=== PATIENT | female | born 1965 | race American Indian/Alaskan Native ===

== ENCOUNTER 2017-10-26 14:22 | Emergency (ER) | payer SELFPAY ==
[2017-10-26 14:43] VITALS: BP 149/99
--- NOTE | 2017-10-26 16:56 | Emergency Department Report ---
- General Chief Complaint: Upper Respiratory Infection Stated Complaint: COLD/HBP/CP Time Seen by Provider: 10/26/17 16:35 Source: patient Mode of arrival: Ambulatory Limitations: No Limitations - History of Present Illness Initial Comments: 51-year-old female presents to ED with report of upper respiratory infection 2 weeks. Patient reported cough, congestion. Patient reports no relief with OTC meds including NyQuil, DayQuil, TheraFlu. She also reports history of hypertension however has been off BP meds 4 years. As a refill on BP meds. Patient unsure of what medication she took in the past. MD Complaint: fever, cough, nasal congestion Severity: moderate Improves With: nothing Worsens With: nothing Associated Symptoms: fever, headache, nasal congestion, cough. denies: shortness of breath, vomiting, diarrhea - Related Data Previous Rx's Medication Instructions Recorded Last Taken Type Cyclobenzaprine [Flexeril] 10 mg PO TID PRN #20 tablet 02/01/15 Unknown Rx Ibuprofen [Motrin 800 MG tab] 800 mg PO Q8HR PRN #30 tablet 02/01/15 Unknown Rx Benzonatate [Tessalon Perles] 100 mg PO Q8HR PRN #20 capsule 10/26/17 Unknown Rx Fluticasone [Flonase] 1 spray NS QDAY #1 bottle 10/26/17 Unknown Rx Hydrocodone/Chlorphen P-Stirex 5 ml PO Q12HR PRN #100 ml 10/26/17 Unknown Rx [Tussionex Pennkinetic Susp] Naproxen [Naprosyn] 500 mg PO BID #20 tablet 10/26/17 Unknown Rx predniSONE [Prednisone] 50 mg PO DAILY #5 tablet 10/26/17 Unknown Rx Allergies Allergy/AdvReac Type Severity Reaction Status Date / Time No Known Allergies Allergy Verified 10/26/17 14:43 ED Review of Systems ROS: Stated complaint: COLD/HBP/CP Other details as noted in HPI Comment: All other systems reviewed and negative Constitutional: fever ENT: congestion Respiratory: cough. denies: shortness of breath, wheezing Cardiovascular: denies: chest pain ED Past Medical Hx - Past Medical History Previous Medical History?: Yes Hx Hypertension: Yes - Surgical History Past Surgical History?: Yes Additional Surgical History: neck, ankle (hardware) - Social History Smoking Status: Current Every Day Smoker Substance Use Type: Alcohol - Medications Home Medications: Home Medications Medication Instructions Recorded Confirmed Last Taken Type Cyclobenzaprine [Flexeril] 10 mg PO TID PRN #20 tablet 02/01/15 Unknown Rx Ibuprofen [Motrin 800 MG tab] 800 mg PO Q8HR PRN #30 tablet 02/01/15 Unknown Rx Benzonatate [Tessalon Perles] 100 mg PO Q8HR PRN #20 capsule 10/26/17 Unknown Rx Fluticasone [Flonase] 1 spray NS QDAY #1 bottle 10/26/17 Unknown Rx Hydrocodone/Chlorphen P-Stirex 5 ml PO Q12HR PRN #100 ml 10/26/17 Unknown Rx [Tussionex Pennkinetic Susp] Naproxen [Naprosyn] 500 mg PO BID #20 tablet 10/26/17 Unknown Rx predniSONE [Prednisone] 50 mg PO DAILY #5 tablet 10/26/17 Unknown Rx ED Physical Exam - General Limitations: No Limitations General appearance: alert, in no apparent distress - Head Head exam: Present: atraumatic, normocephalic - Eye Eye exam: Present: normal appearance - ENT ENT exam: Present: mucous membranes moist - Neck Neck exam: Present: normal inspection, full ROM - Respiratory Respiratory exam: Present: normal lung sounds bilaterally. Absent: respiratory distress, wheezes - Cardiovascular Cardiovascular Exam: Present: regular rate, normal rhythm - GI/Abdominal GI/Abdominal exam: Present: soft. Absent: tenderness - Extremities Exam Extremities exam: Present: normal inspection - Neurological Exam Neurological exam: Present: alert, oriented X3 - Psychiatric Psychiatric exam: Present: normal affect, normal mood - Skin Skin exam: Present: warm, dry, intact, normal color. Absent: rash ED Course Vital Signs 10/26/17 14:40 Temperature 98.7 F Pulse Rate 88 Respiratory 18 Rate Blood Pressure 149/99 O2 Sat by Pulse 99 Oximetry ED Medical Decision Making - Medical Decision Making 51-year-old female with upper respiratory infection 2 weeks. No relief with OTC meds. Vital signs are unremarkable. Patient requesting refill on hypertension meds. Off meds 4 years. Will give medication for BP and URI. Patient to follow-up in outpatient clinic. Return precautions given - Differential Diagnosis uri, essential HTN, bronchitis Critical care attestation.: If time is entered above; I have spent that time in minutes in the direct care of this critically ill patient, excluding procedure time. ED Disposition Clinical Impression: Bronchitis Disposition: DC- TO HOME OR SELFCARE Is pt being admited?: No Condition: Stable Instructions: Chronic Bronchitis (ED), Acute Bronchitis (ED) Prescriptions: Benzonatate [Tessalon Perles] 100 mg PO Q8HR PRN #20 capsule PRN Reason: Cough Fluticasone [Flonase] 1 spray NS QDAY #1 bottle Hydrocodone/Chlorphen P-Stirex [Tussionex Pennkinetic Susp] 5 ml PO Q12HR PRN # 100 ml PRN Reason: Cough Naproxen [Naprosyn] 500 mg PO BID #20 tablet predniSONE [Prednisone] 50 mg PO DAILY #5 tablet Referrals: PRIMARY CARE, [Primary Care Provider] - 3-5 Days
== END 2017-10-26 17:10 | disposition home or self-care (01) ==
LOC: ED 14:22
DX: J40 Bronchitis, not specified as acute or chronic (principal); I10 Essential (primary) hypertension; F17.200 Nicotine dependence, unspecified, uncomplicated
CPT/HCPCS: 99282

== ENCOUNTER 2018-05-14 22:53 | Emergency (ER) | payer SELFPAY ==
[2018-05-14] MEDS ORDERED: CATAPRES PO ONE (23:11)
[2018-05-14] MEDS ORDERED: APRESOLINE IV ONE (23:50)
[2018-05-14 23:55] LABS: Basophils % (Auto) 0.8 % (0.0-1.8); Eosinophils # (Auto) 0.1 K/mm3 (0.0-0.4); Eosinophils % (Auto) 2.6 % (0.0-4.3); Hemoglobin 14.3 gm/dl (10.1-14.3); Lymphocytes # (Auto) 1.6 K/mm3 (1.2-5.4); Lymphocytes % (Auto) 31.1 % (13.4-35.0); Mean Corpuscular HGB Conc 35 % (30-34); Mean Corpuscular Volume 90 fl (79-97); Monocytes # (Auto) 0.4 K/mm3 (0.0-0.8); Platelet Count 196 K/mm3 (140-440); Red Blood Count 4.55 M/mm3 (3.65-5.03); Red Cell Distribution Width 13.3 % (13.2-15.2)
[2018-05-15 00:06] LABS: BUN/Creatinine Ratio 17; Blood Urea Nitrogen 12 mg/dL (7-17); Calcium 8.6 mg/dL (8.4-10.2); Hemolysis Index 12; INR 0.92 (0.87-1.13)
[2018-05-15 00:07] LABS: Partial Thromboplastin Time 24.4 Sec. (24.2-36.6)
--- NOTE | 2018-05-15 00:15 | Emergency Department Report ---
HPI - General Chief Complaint: High BP Time Seen by Provider: 05/14/18 23:48 - HPI HPI: 52-year-old -[place] female presents to the emergency department from home with complaint of a 2 day history of a generalized headache, intermittent nosebleed and increased fatigue. The patient has been dealing with some elevated blood pressures. She does have a history of hypertension but has not been on any medication since she moved to [place] 5 years ago. She denies any chest pain, back pain, shortness of breath, fever, nausea and vomiting. She has not taken anything for her symptoms prior to presentation. She does not have a primary care physician. She is a tobacco smoker but denies any illicit drug use or abuse. ED Past Medical Hx - Past Medical History Previous Medical History?: Yes Hx Hypertension: Yes - Surgical History Past Surgical History?: Yes Additional Surgical History: neck, ankle (hardware) - Social History Smoking Status: Current Every Day Smoker Substance Use Type: None - Medications Home Medications: Home Medications Medication Instructions Recorded Confirmed Last Taken Type Cyclobenzaprine [Flexeril] 10 mg PO TID PRN #20 tablet 02/01/15 Unknown Rx Ibuprofen [Motrin 800 MG tab] 800 mg PO Q8HR PRN #30 tablet 02/01/15 Unknown Rx Benzonatate [Tessalon Perles] 100 mg PO Q8HR PRN #20 capsule 10/26/17 Unknown Rx Fluticasone [Flonase] 1 spray NS QDAY #1 bottle 10/26/17 Unknown Rx Hydrocodone/Chlorphen P-Stirex 5 ml PO Q12HR PRN #100 ml 10/26/17 Unknown Rx [Tussionex Pennkinetic Susp] Naproxen [Naprosyn] 500 mg PO BID #20 tablet 10/26/17 Unknown Rx predniSONE [Prednisone] 50 mg PO DAILY #5 tablet 10/26/17 Unknown Rx amLODIPine [Norvasc] 10 mg PO DAILY #30 tab 05/15/18 Unknown Rx ED Review of Systems ROS: Stated complaint: NOSE BLEED, DROWSY, ELEVATED BP Other details as noted in HPI Comment: All other systems reviewed and negative Constitutional: other (fatigue). denies: chills, fever Eyes: denies: eye pain, vision change ENT: epistaxis. denies: ear pain Respiratory: denies: cough, shortness of breath Cardiovascular: denies: chest pain, palpitations Gastrointestinal: denies: abdominal pain, vomiting Genitourinary: denies: dysuria, discharge Musculoskeletal: myalgia. denies: back pain Skin: denies: rash, lesions Neurological: headache. denies: weakness, numbness Physical Exam - Physical Exam Vital Signs: Vital Signs 05/14/18 05/14/18 05/14/18 22:59 23:17 23:43 Temperature 98.2 F Pulse Rate 88 89 99 H Respiratory 18 23 Rate Blood Pressure 230/113 230/113 O2 Sat by Pulse 96 Oximetry 05/14/18 05/15/18 23:46 00:09 Temperature Pulse Rate 82 82 Respiratory 19 Rate Blood Pressure 191/125 191/125 O2 Sat by Pulse 100 Oximetry Physical Exam: GENERAL: The patient is well-developed well-nourished. HEENT: Normocephalic. Atraumatic. Patient has moist mucous membranes. Oropharynx is clear. Clear bilateral nasal passages without any signs of epistaxis. EYES: Extraocular motions are intact. Pupils are equal and reactive to light bilaterally. NECK: Supple. Trachea is midline. CHEST/LUNGS: Clear to auscultation. There is no respiratory distress noted. HEART/CARDIOVASCULAR: Regular. There is no tachycardia. There is no obvious murmur. ABDOMEN: Abdomen is soft, nontender. Patient has normal bowel sounds. There is no abdominal distention. SKIN: Skin is warm and dry. NEURO: The patient is awake, alert, and oriented. The patient is cooperative. The patient has no focal neurologic deficits. The patient has normal speech. Cranial nerves II through XII grossly intact. No pronator drift. MUSCULOSKELETAL: There is no tenderness or deformity. There is no limitation range of motion. There is no evidence of acute injury. ED Course Vital Signs 05/14/18 05/14/18 05/14/18 22:59 23:17 23:43 Temperature 98.2 F Pulse Rate 88 89 99 H Respiratory 18 23 Rate Blood Pressure 230/113 230/113 O2 Sat by Pulse 96 Oximetry 05/14/18 05/15/18 23:46 00:09 Temperature Pulse Rate 82 82 Respiratory 19 Rate Blood Pressure 191/125 191/125 O2 Sat by Pulse 100 Oximetry ED Medical Decision Making - Lab Data Result diagrams: 05/14/18 23:32 05/14/18 23:32 - EKG Data -: EKG Interpreted by Nh EKG shows normal: sinus rhythm, axis (left axis deviation), intervals, QRS complexes (LVH), ST-T waves Rate: normal - EKG Data When compared to previous EKG there are: previous EKG unavailable Interpretation: LVH - Radiology Data Radiology results: report reviewed PROCEDURE: CT HEAD/BRAIN WO CON TECHNIQUE: Routine axial imaging was obtained of the brain without IV contrast. HISTORY: Headache with hypertension, blurry vision COMPARISONS: None FINDINGS: There is a remote lacunar infarct in the left frontal lobe. There is no evidence of acute stroke or hemorrhage. The ventricular system is appropriate in size and is such. There is slightly diminished attenuation of the periventricular white matter noted. The basal cisterns appear normal. The visualized sinuses are clear. The mastoid air cells are well pneumatized. The calvarium appears intact. IMPRESSION: No acute stroke or hemorrhage. Remote lacunar infarct in the left frontal lobe. Slightly diminished attenuation of the paravertebral white matter compatible with chronic ischemic white matter disease changes.. This document is electronically signed by Casey Briggs MD., May 15 2018 01:32:34 AM ET Transcribed By: MESERET Dictated By: CASEY BRIGGS MD Electronically Authenticated By: CASEY BRIGGS MD Signed Date/Time: 05/15/18 0134 - Medical Decision Making This patient presents with extremely elevated blood pressure and a 2 day history of a generalized headache and some blurred vision and epistaxis. Currently the patient has no signs of any bleeding and it seems to have resolved much earlier in the day. On examination she does not have any focal, motor or sensory deficits and Cranial nerves intact. CT scan of the head was done that does not show any bleed, shift, mass, ischemia, or any other acute process. Patient's labs were unremarkable including a CBC, BMP, TSH, troponin. Prior to discharge, the patient was seen ambulatory in the emergency department and both appears and feels stable. She will be started on amlodipine. We discussed dietary and lifestyle changes to make including smoking cessation, decrease salt and caffeine intake. She will be given multiple primary care and clinic referrals. She will keep a blood pressure log. She will return to the ER with any worsening of her symptoms or any acute distress. It should also be noted that the patient has poor visual acuity at this time that she wears glasses and does not have them with her currently. Critical Care Time: No Critical care attestation.: If time is entered above; I have spent that time in minutes in the direct care of this critically ill patient, excluding procedure time. ED Disposition Clinical Impression: Hypertensive urgency, Tobacco use, Noncompliance with medication regimen Headache Qualifiers: Headache type: unspecified Headache chronicity pattern: unspecified pattern Intractability: not intractable Qualified Code(s): R51 - Headache Disposition: DC-01 TO HOME OR SELFCARE Is pt being admited?: No Condition: Stable Instructions: How to Stop Smoking (ED), Acute Headache (ED), Hypertension (ED) Additional Instructions: I am giving you multiple referrals for primary care physicians and clinics in the area for follow-up. I am starting you on a blood pressure medication the name Norvasc/amlodipine. This medication is taken once per day, usually in the morning. Please try and quit smoking. Try and stay away from foods that are high in salt and caffeinated products to help with her blood pressure. Keep a blood pressure log. Return to the emergency Department with any worsening of your symptoms or any acute distress. Prescriptions: amLODIPine [Norvasc] 10 mg PO DAILY #30 tab Referrals: [facility] [Outside] - 2-3 Days [facility] [Outside] - 2-3 Days [facility] [Outside] - 2-3 Days [facility] [Outside] - 2-3 Days [facility] [Outside] - 2-3 Days Time of Disposition: 01:54 - Assessment Assessment Interval: Baseline - Level of Consciousness 1a. Level of Consciousness: alert/keenly responsive - LOC Questions 1b. LOC Questions: answers both correctly - LOC Command 1c. LOC Commands: performs tasks correctly - Best Gaze 2. Best Gaze: normal - Visual 3. Visual: no visual loss - Facial Palsy 4. Facial Palsy: normal symmetrical movement - Motor Arm 5a. Motor Arm Left: no drift 5b. Motor Arm Right: no drift - Motor Leg 6a. Motor Leg Left: no drift 6b. Motor Leg Right: no drift - Limb Ataxia 7. Limb Ataxia: absent - Sensory 8. Sensory: normal - Best Language 9. Best Language: no aphasia - Dysarthria 10. Dysarthria: normal - Extinction and Inattention 11. Extinction/Inattention: no abnormality - Scoring Total Score: 0 Stroke Severity: No Stroke Symptoms
--- NOTE | 2018-05-15 01:34 | Cat Scan Report ---
PROCEDURE: CT HEAD/BRAIN WO CON TECHNIQUE: Routine axial imaging was obtained of the brain without IV contrast. HISTORY: Headache with hypertension, blurry vision COMPARISONS: None FINDINGS: There is a remote lacunar infarct in the left frontal lobe. There is no evidence of acute stroke or h emorrhage. The ventricular system is appropriate in size and is such. There is slightly diminished at tenuation of the periventricular white matter noted. The basal cisterns appear normal. The visualized sinuses are clear. The mastoid air cells are well pneumatized. The calvarium appears intact. IMPRESSION: No acute stroke or hemorrhage. Remote lacunar infarct in the left frontal lobe. Slightly diminished attenuation of the paravertebral white matter compatible with chronic ischemic wh ite matter disease changes.. This document is electronically signed by Casey Briggs MD., May 15 2018 01:32:34 AM ET
[2018-05-15 02:40] VITALS: BP 150/66
== END 2018-05-15 02:47 | disposition home or self-care (01) ==
LOC: ED 22:53
DX: I16.0 Hypertensive urgency (principal); Z72.0 Tobacco use; F17.200 Nicotine dependence, unspecified, uncomplicated; Z79.899 Other long term (current) drug therapy
CPT/HCPCS: 36415; 70450; 80048; 84443; 84484; 85025; 85610; 85730; 93005; 93010; 96374; 99284; J0360

== ENCOUNTER 2018-09-27 18:43 | Inpatient (IN) | payer OTHER ==
--- NOTE | 2018-09-27 18:52 | Event Note ---
ED Screening Note ED Screening Note: right arm numbness and weakness since 2 PM today denies hx of CVA This initial assessment/diagnostic orders/clinical plan/treatment(s) is/are subject to change based on patients health status, clinical progression and re- assessment by fellow clinical providers in the ED. Further treatment and workup at subsequent clinical providers discretion. Patient/guardian urged not to elope from the ED as their condition may be serious if not clinically assessed and managed. Initial orders include: code stroke
--- NOTE | 2018-09-27 19:12 | Consultation ---
History of Present Illness History of present illness: [facility] Impression: Patient with right-sided weakness/sensory loss. Probable left hemispheric lacunar infarct of the deep brain structures. Not a tpa candidate due to: out of window Not an KELLEY candidate due to: presentation not suggestive of LVO Differential Diagnosis: 1. Cardioembolic stroke 2. Small vessel disease/lacune 3. Thromboembolic, [id number] mechanism 4. Hypercoagulable state-related infarct 5. Transient ischemic attack 6. Thrombotic mechanism, large artery disease Comments: Door time: 1842 [facility] contacted: 1855 [facility] at bedside: 1858 NIHSS assessment time: 1904 (pt in CT on log in) Recommendations: ASA Permissive HTN Statin MRI brain wo Carotid Doppler TTE inpatient neurology consultation Inpatient stroke evaluation as per Neurology/ Internal Medicine Discussed with ED MD CC: stroke alert History of Present Illness Patient is a52 year old woman with a history of HTN presenting with right-sided weakness/numbness. Last normal at 0800 when she woke from sleep to use the bathroom. She went back to sleep and woke around noon with right-sided weakness and numbness. No vision loss, speech/language changes, incoordination, neglect, MCCOY, CP. Diagnostic: CT head wo - nothing acute Exam: NIHSS score: 3 Medical Decision Making: - Extensive number of diagnosis or management options are considered above. - Extensive amount of complex data reviewed. - High risk of complication and/or morbidity or mortality are associated with differential diagnostic considerations above. - There may be Uncertain outcome and increased probability of prolonged functional impairment or high probability of severe prolonged functional impairment associated with some of these differential diagnosis. Medical Data Reviewed: 1.Data reviewed include clinical labs, radiology, Medical Tests; 2.Tests results discussed w/performing or interpreting physician; 3.Obtaining/reviewing old medical records; 4.Obtaining case history from another source; 5.Independent review of image, tracing or specimen. Patient was informed the Neurology Consult would happen via Tele[facility] consult by way of interactive audio and video telecommunications and consented to receiving care in this manner. Medications and Allergies Allergies Allergy/AdvReac Type Severity Reaction Status Date / Time No Known Allergies Allergy Verified 10/26/17 14:43 Home Medications Medication Instructions Recorded Confirmed Last Taken Type Cyclobenzaprine [Flexeril] 10 mg PO TID PRN #20 tablet 02/01/15 Unknown Rx Ibuprofen [Motrin 800 MG tab] 800 mg PO Q8HR PRN #30 tablet 02/01/15 Unknown Rx Benzonatate [Tessalon Perles] 100 mg PO Q8HR PRN #20 capsule 10/26/17 Unknown Rx Fluticasone [Flonase] 1 spray NS QDAY #1 bottle 10/26/17 Unknown Rx Hydrocodone/Chlorphen P-Stirex 5 ml PO Q12HR PRN #100 ml 10/26/17 Unknown Rx [Tussionex Pennkinetic Susp] Naproxen [Naprosyn] 500 mg PO BID #20 tablet 10/26/17 Unknown Rx predniSONE [Prednisone] 50 mg PO DAILY #5 tablet 10/26/17 Unknown Rx amLODIPine [Norvasc] 10 mg PO DAILY #30 tab 05/15/18 Unknown Rx - Level of Consciousness 1a. Level of Consciousness: alert/keenly responsive - LOC Questions 1b. LOC Questions: answers both correctly - LOC Command 1c. LOC Commands: performs tasks correctly - Best Gaze 2. Best Gaze: normal - Visual 3. Visual: no visual loss - Facial Palsy 4. Facial Palsy: normal symmetrical movement - Motor Arm 5a. Motor Arm Left: no drift 5b. Motor Arm Right: drift - Motor Leg 6a. Motor Leg Left: no drift 6b. Motor Leg Right: drift - Limb Ataxia 7. Limb Ataxia: absent - Sensory 8. Sensory: mild/moderate sensory loss - Best Language 9. Best Language: no aphasia - Dysarthria 10. Dysarthria: normal - Extinction and Inattention 11. Extinction/Inattention: no abnormality - Scoring Total Score: 3 Stroke Severity: Minor Stroke
[2018-09-27 19:20] LABS: Basophils # (Auto) 0.1 K/mm3 (0.0-0.1); Eosinophils # (Auto) 0.3 K/mm3 (0.0-0.4); Eosinophils % (Auto) 4.5 % (0.0-4.3); Hematocrit 43.9 % (30.3-42.9); Hemoglobin 15.1 gm/dl (10.1-14.3); Lymphocytes # (Auto) 1.8 K/mm3 (1.2-5.4); Lymphocytes % (Auto) 29.5 % (13.4-35.0); Mean Corpuscular HGB Conc 34 % (30-34); Mean Corpuscular Volume 88 fl (79-97); Monocytes # (Auto) 0.6 K/mm3 (0.0-0.8); Monocytes % (Auto) 10.2 % (0.0-7.3); Platelet Count 204 K/mm3 (140-440); Red Blood Count 4.97 M/mm3 (3.65-5.03); Red Cell Distribution Width 12.7 % (13.2-15.2)
--- NOTE | 2018-09-27 19:28 | Cat Scan Report ---
CT head without contrast Clinical history: Right-sided weakness, slurred speech, stroke symptoms FINDINGS: There is no old infarct involving the anterior left gangliocapsular region which correlates with the previous CT of 05/15/2018. However, there is a 9 mm focus of more subtle decrease attenuatio n within the left putamen which is more conspicuous than on the prior study and correlation would be needed regarding small evolving infarct within this region. There is a small old lacunar infarct with in the head of the right caudate. 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 There is no clear CT evidence of acute intracranial hemorrhage or significant mass effect. The ventri cular system appears unchanged in size and configuration. The visualized paranasal sinuses are clear. All CT scans at this location are performed using the CT dose reduction for ALARA by means of automa bryce exposure control. IMPRESSION: There is old infarct involving the anterior left gangliocapsular region. However, there is been inter hugo development of a 9 mm focus of decreased attenuation more posteriorly within the left putamen and correlation would be needed regarding developing acute infarct. There is no CT evidence of acute intracranial hemorrhage. The findings were called emergently to the ER at 6:21 PM per the code stroke protocol. Signer Name: Colby Sanders MD Signed: 09/27/2018 7:23 PM Workstation Name: [id number]
[2018-09-27 19:38] LABS: Creatine Kinase MB 1.9 ng/mL (0.0-4.0)
[2018-09-27 19:45] LABS: INR 0.9 (0.87-1.13)
[2018-09-27 19:46] LABS: Partial Thromboplastin Time 23.4 Sec. (24.2-36.6); Thrombin Time 16.7 Sec. (15.1-19.6)
[2018-09-27] MEDS ORDERED: CATAPRES PO ONE ×2 (20:32→20:47)
[2018-09-27 21:03] LABS: BUN/Creatinine Ratio 18; Blood Urea Nitrogen 9 mg/dL (7-17); Hemolysis Index 13
--- NOTE | 2018-09-27 21:03 | XRay Report ---
CHEST 1 VIEW INDICATION: HTN. COMPARISON: None. FINDINGS: Support devices: None. Heart: Within normal limits. Lungs/Pleura: No acute air space or interstitial disease. Additional findings: None. IMPRESSION: No acute abnormality. Signer Name: Edu Jones MD Signed: 09/27/2018 8:59 PM Workstation Name: [id number]
[2018-09-27] MEDS ORDERED: APRESOLINE IV ONE (21:23)
[2018-09-27] MEDS ORDERED: ZOFRAN IV PRN ×2 (23:18→23:42)
[2018-09-27] MEDS ORDERED: TYLENOL PO PRN ×2 (23:18→23:34)
[2018-09-27] MEDS ORDERED: SODIUM CHLORIDE FLUSH SYRINGE 10 ML IV PRN (23:18)
--- NOTE | 2018-09-27 23:22 | Emergency Department Report ---
ED Neuro Deficit HPI - General Chief Complaint: Neuro Symptoms/Deficit Stated Complaint: R SIDE NUMBNESS Time Seen by Provider: 09/27/18 18:50 Source: patient Mode of arrival: Ambulatory Limitations: No Limitations - History of Present Illness Initial Comments: PAtient reports she awoke at approximately 0800. Reports she did not feel well and went back to sleep until noon. Reports that at noon she attempted to walk to the bathroom and felt funny. Reports she felt her right side was weak. Reports that at approximately 1400 the right sided weakness became more pronounce. Denies trauma. Reports non-compliant with anti-hypertensives for approximately 1 year. Reports smokes tobacco. -: Gradual, hour(s) Location: speech, right face, right arm, right leg Presenting Symptoms: Present: Weak/Paralyzed One Side Place: home Severity: moderate Quality: weak Improves With: none Worsens With: none On Anticoagulants: No Context: gradual onset Associated Symptoms: weakness. denies: confusion, chest pain, cough, diaphoresis, fever/chills, headaches, loss of appetite, malise, nausea/vomiting, vertigo, seizures, shortness of breath, syncope - Related Data Home Medications: Previous Rx's Medication Instructions Recorded Last Taken Type Cyclobenzaprine [Flexeril] 10 mg PO TID PRN #20 tablet 02/01/15 Unknown Rx Ibuprofen [Motrin 800 MG tab] 800 mg PO Q8HR PRN #30 tablet 02/01/15 Unknown Rx Benzonatate [Tessalon Perles] 100 mg PO Q8HR PRN #20 capsule 10/26/17 Unknown Rx Fluticasone [Flonase] 1 spray NS QDAY #1 bottle 10/26/17 Unknown Rx Hydrocodone/Chlorphen P-Stirex 5 ml PO Q12HR PRN #100 ml 10/26/17 Unknown Rx [Tussionex Pennkinetic Susp] Naproxen [Naprosyn] 500 mg PO BID #20 tablet 10/26/17 Unknown Rx predniSONE [Prednisone] 50 mg PO DAILY #5 tablet 10/26/17 Unknown Rx amLODIPine [Norvasc] 10 mg PO DAILY #30 tab 05/15/18 Unknown Rx Allergies/Adverse Reactions: Allergies Allergy/AdvReac Type Severity Reaction Status Date / Time No Known Allergies Allergy Verified 10/26/17 14:43 ED Review of Systems ROS: Stated complaint: R SIDE NUMBNESS Other details as noted in HPI Other: GENERAL: No weight change, fatigue, fever, chills, or night sweats SKIN: No changes in skin or hair, no itching, no rashes, no jaundice HEAD: No trauma, headache, or visual changes EYES: No blurriness, tearing, itching, acute visual loss, conjunctival discoloration, or scleral icterus EARS: No hearing loss, tinnitus, vertigo, or earache NOSE: No rhinorrhea, stuffiness, sneezing, itching, or epistaxis MOUTH: No bleeding gums, hoarseness, sore throat, or swelling CARDIAC: No new murmur, chest pain, palpitations, dyspnea on exertion, orthopnea, PND, or edema RESPIRATORY: No shortness of breath, wheeze, cough, sputum production, hemoptysis, pneumonia, asthma, bronchitis, or emphysema GI: No change in appetite, nausea, vomiting, dysphagia, change in bowel frequency, diarrhea, constipation, bleeding, hematemesis, melena, hematochezia, or abdominal pain URINARY: No frequency, urgency, polyuria, dysuria, hematuria, or incontinence MUSCULOSKELETAL: No muscle weakness, joint stiffness, decrease in range of motion, redness, swelling NEUROLOGIC: Weakness right side. No loss of sensation, numbness, tingling, tremors, paralysis, seizures HEMATOLOGIC: No anemia, easy bruising, bleeding, petechiae, or purpura ENDOCRINE: No hot or cold intolerance, sweating, polyuria, polydipsia or, polyphagia no thyroid problems ED Past Medical Hx - Past Medical History Hx Hypertension: Yes - Surgical History Additional Surgical History: neck, ankle (hardware) - Social History Smoking Status: Current Every Day Smoker Substance Use Type: Alcohol - Medications Home Medications: Home Medications Medication Instructions Recorded Confirmed Last Taken Type Cyclobenzaprine [Flexeril] 10 mg PO TID PRN #20 tablet 02/01/15 Unknown Rx Ibuprofen [Motrin 800 MG tab] 800 mg PO Q8HR PRN #30 tablet 02/01/15 Unknown Rx Benzonatate [Tessalon Perles] 100 mg PO Q8HR PRN #20 capsule 10/26/17 Unknown Rx Fluticasone [Flonase] 1 spray NS QDAY #1 bottle 10/26/17 Unknown Rx Hydrocodone/Chlorphen P-Stirex 5 ml PO Q12HR PRN #100 ml 10/26/17 Unknown Rx [Tussionex Pennkinetic Susp] Naproxen [Naprosyn] 500 mg PO BID #20 tablet 10/26/17 Unknown Rx predniSONE [Prednisone] 50 mg PO DAILY #5 tablet 10/26/17 Unknown Rx amLODIPine [Norvasc] 10 mg PO DAILY #30 tab 05/15/18 Unknown Rx ED Neuro Physical Exam - General Limitations: No Limitations Suspected Stroke: Yes - NIHSS Assessment Interval: Baseline 1a. Level of Consciousness: alert/keenly responsive 1b. LOC Questions: answers both correctly 1c. LOC Commands: performs tasks correctly 2. Best Gaze: normal 3. Visual: no visual loss 4. Facial Palsy: partial paralysis 5b. Motor Arm Right: some gravity effort 5a. Motor Arm Left: no drift 6a. Motor Leg Left: no drift 6b. Motor Leg Right: drift 7. Limb Ataxia: absent 8. Sensory: mild/moderate sensory loss 9. Best Language: mild/moderate aphasia 10. Dysarthria: mild/moderate dysarthria 11. Extinction/Inattention: no abnormality Total Score: 8 Stroke Severity: Moderate Stroke - Other Other exam information: GENERAL: Patient in acute distress HEAD: Normocephalic, atraumatic EYES: PERRLA, EOM intact, no scleral icterus, no conjunctival hemorrhage, visual taylor and acuity wnl NOSE: No tenderness, discharge, sinus tenderness MOUTH: No erythema, bleeding, exudate HEART: Regular rate and rhythm, no murmur, S1-S2 are auscultated, pulses are symmetric LUNGS: Bilateral breath sounds, No tachypnea, No retractions, No wheezing, rales, rhonchi ABDOMEN: Normal bowel sounds, no tenderness, no rebound, no guarding, no masses, no CVA tenderness MUSCULOSKELETAL: Normal joint range of motion, no redness, no swelling, no tenderness NEUROLOGIC: GCS 15, Alert and Oriented x3, Cranial nerves intact, no cerebellar deficit, right sided weakness, right sided numbness SKIN: Skin is warm and dry, no wounds, no rashes ED Course Vital Signs 09/27/18 09/27/18 09/27/18 19:06 19:40 19:48 Temperature 98.4 F Pulse Rate 80 71 Respiratory 18 15 15 Rate Blood Pressure 221/131 Blood Pressure 245/130 [Left] O2 Sat by Pulse 100 98 98 Oximetry 08/13/19 08/13/19 08/13/19 20:38 21:10 21:44 Temperature Pulse Rate 70 72 65 Respiratory Rate Blood Pressure 228/130 222/123 207/116 Blood Pressure [Left] O2 Sat by Pulse Oximetry 09/27/18 09/27/18 22:30 23:30 Temperature 97.6 F Pulse Rate 70 70 Respiratory 15 12 Rate Blood Pressure Blood Pressure 168/78 163/82 [Left] O2 Sat by Pulse 100 100 Oximetry - Lab Data Result diagrams: 09/27/18 19:13 09/27/18 20:37 Lab Results 09/27/18 09/27/18 09/27/18 Range/Units 19:13 19:13 19:13 WBC 6.1 (4.5-11.0) K/mm3 RBC 4.97 (3.65-5.03) M/mm3 Hgb 15.1 H (10.1-14.3) gm/dl Hct 43.9 H (30.3-42.9) % MCV 88 (79-97) fl MCH 30 (28-32) pg MCHC 34 (30-34) % RDW 12.7 L (13.2-15.2) % Plt Count 204 (140-440) K/mm3 Lymph % (Auto) 29.5 (13.4-35.0) % [place] % (Auto) 10.2 H (0.0-7.3) % Eos % (Auto) 4.5 H (0.0-4.3) % Baso % (Auto) 1.0 (0.0-1.8) % Lymph # 1.8 (1.2-5.4) K/mm3 [place] # 0.6 (0.0-0.8) K/mm3 Eos # 0.3 (0.0-0.4) K/mm3 Baso # 0.1 (0.0-0.1) K/mm3 Seg Neutrophils % 54.8 (40.0-70.0) % Seg Neutrophils # 3.3 (1.8-7.7) K/mm3 PT 11.9 L (12.2-14.9) Sec. INR 0.90 (0.87-1.13) APTT 23.4 L (24.2-36.6) Sec. Thrombin Time 16.7 (15.1-19.6) Sec. Sodium (137-145) mmol/L Potassium (3.6-5.0) mmol/L Chloride (98-107) mmol/L Carbon Dioxide (22-30) mmol/L Anion Gap mmol/L BUN (7-17) mg/dL Creatinine (0.7-1.2) mg/dL Estimated GFR ml/min BUN/Creatinine Ratio % Glucose (65-100) mg/dL POC Glucose (70-105) Calcium (8.4-10.2) mg/dL Total Creatine Kinase 118 (30-135) units/L CK-MB (CK-2) 1.9 (0.0-4.0) ng/mL CK-MB (CK-2) Rel Index 1.6 (0-4) Troponin T < 0.010 (0.00-0.029) ng/mL 09/27/18 09/27/18 Range/Units 19:16 20:37 WBC (4.5-11.0) K/mm3 RBC (3.65-5.03) M/mm3 Hgb (10.1-14.3) gm/dl Hct (30.3-42.9) % MCV (79-97) fl MCH (28-32) pg MCHC (30-34) % RDW (13.2-15.2) % Plt Count (140-440) K/mm3 Lymph % (Auto) (13.4-35.0) % [place] % (Auto) (0.0-7.3) % Eos % (Auto) (0.0-4.3) % Baso % (Auto) (0.0-1.8) % Lymph # (1.2-5.4) K/mm3 [place] # (0.0-0.8) K/mm3 Eos # (0.0-0.4) K/mm3 Baso # (0.0-0.1) K/mm3 Seg Neutrophils % (40.0-70.0) % Seg Neutrophils # (1.8-7.7) K/mm3 PT (12.2-14.9) Sec. INR (0.87-1.13) APTT (24.2-36.6) Sec. Thrombin Time (15.1-19.6) Sec. Sodium 140 (137-145) mmol/L Potassium 3.6 (3.6-5.0) mmol/L Chloride 103.6 (98-107) mmol/L Carbon Dioxide 23 (22-30) mmol/L Anion Gap 17 mmol/L BUN 9 (7-17) mg/dL Creatinine 0.5 L (0.7-1.2) mg/dL Estimated GFR > 60 ml/min BUN/Creatinine Ratio 18 % Glucose 97 (65-100) mg/dL POC Glucose 112 H (70-105) Calcium 9.0 (8.4-10.2) mg/dL Total Creatine Kinase (30-135) units/L CK-MB (CK-2) (0.0-4.0) ng/mL CK-MB (CK-2) Rel Index (0-4) Troponin T (0.00-0.029) ng/mL When compared to previous EKG there are: no significant change - Radiology Data Radiology results: report reviewed - Medical Decision Making Patient comfortable. Updated with results. Plan admit for further evaluation. Hospitalist updated and accepts admission. Critical Care Time: Yes Critical care time in (mins) excluding proc time.: 35 Critical care attestation.: If time is entered above; I have spent that time in minutes in the direct care of this critically ill patient, excluding procedure time. 35 ED Disposition Clinical Impression: Hypertensive emergency CVA (cerebral vascular accident) Qualifiers: CVA mechanism: unspecified Qualified Code(s): I63.9 - Cerebral infarction, unspecified Disposition: DC-09 OP ADMIT IP TO THIS HOSP Is pt being admited?: Yes Condition: Stable
[2018-09-27] MEDS ORDERED: MORPHINE IV PRN (23:34)
[2018-09-27] MEDS ORDERED: SODIUM CHLORIDE FLUSH SYRINGE 10 ML INJ PRN (23:34)
[2018-09-27] MEDS ORDERED: PHENERGAN PR PRN (23:34)
--- NOTE | 2018-09-28 01:13 | History and Physical Report ---
History of Present Illness Date of examination: 09/27/18 Date of admission: 09/27/18 23:18 Chief complaint: Right Sided weakness/numbness History of present illness: 52 year old female who is ongoing smoker with a history of EToH abuse HTN non compliant with antihypertensive meds, who [facility] with complaints of right-sided weakness/numbness Pt's last known normal is around 0800 this morning when she got up to use the restroom before returning to sleep. She woke up at noon, and upon waking up she noticed right sided weakness and numbness. She denies alterations in speech, visions, and gait. Past History Past Medical History: hypertension Past Surgical History: Other (neck, ankle (hardware)) Social history: smoking (current everyday smoker), alcohol abuse Family history: no significant family history Medications and Allergies Allergies Allergy/AdvReac Type Severity Reaction Status Date / Time No Known Allergies Allergy Verified 10/26/17 14:43 Home Medications Medication Instructions Recorded Confirmed Last Taken Type Cyclobenzaprine [Flexeril] 10 mg PO TID PRN #20 tablet 02/01/15 Unknown Rx Ibuprofen [Motrin 800 MG tab] 800 mg PO Q8HR PRN #30 tablet 02/01/15 Unknown Rx Benzonatate [Tessalon Perles] 100 mg PO Q8HR PRN #20 capsule 10/26/17 Unknown Rx Fluticasone [Flonase] 1 spray NS QDAY #1 bottle 10/26/17 Unknown Rx Hydrocodone/Chlorphen P-Stirex 5 ml PO Q12HR PRN #100 ml 10/26/17 Unknown Rx [Tussionex Pennkinetic Susp] Naproxen [Naprosyn] 500 mg PO BID #20 tablet 10/26/17 Unknown Rx predniSONE [Prednisone] 50 mg PO DAILY #5 tablet 10/26/17 Unknown Rx amLODIPine [Norvasc] 10 mg PO DAILY #30 tab 05/15/18 Unknown Rx Active Meds: Active Medications Acetaminophen (Tylenol) 650 mg PO Q4H PRN PRN Reason: Pain MILD(1-3)/Fever >100.5/MCCOY Aspirin (Aspirin) 325 mg PO QDAY RAINE Atorvastatin Calcium (Lipitor) 40 mg PO QHS RAINE Docusate Sodium (Colace) 100 mg PO BID RAINE Enoxaparin Sodium (Lovenox) 40 mg SUB-Q QDAY RAINE Morphine Sulfate (Morphine) 2 mg IV Q4H PRN PRN Reason: Pain, Moderate (4-6) Nicotine (Habitrol) 14 mg TD QDAY RAINE Ondansetron HCl (Zofran) 4 mg IV Q6H PRN PRN Reason: Nausea And Vomiting Promethazine HCl (Phenergan) 25 mg [place] Q6H PRN PRN Reason: Nausea And Vomiting Sodium Chloride (Sodium Chloride Flush Syringe 10 Ml) 10 ml IV BID RAINE Sodium Chloride (Sodium Chloride Flush Syringe 10 Ml) 10 ml IV PRN PRN PRN Reason: LINE FLUSH Review of Systems All systems: negative (reviewed and no additional remarkable complaints except as noted below) Musculoskeletal: muscle weakness, other (right sided weakness and numbness) Exam - Physical Exam Narrative exam: Physical exam General appearance: Present: No acute distress, and oriented 3, obese, - [place] female, face is symmetrical - EENT Eyes: Present: PERRL, EOM intact ENT: hearing intact, normal dentition - Neck Neck: Present: supple, normal ROM - Respiratory Respiratory effort: Non-labored Respiratory: CTA bilaterally - Cardiovascular Heart rate: 65 (bpm) Rhythm: regular Heart Sounds: Present: S1 & S2. Absent: rub, click - Extremities Extremities: no ischemia, pulses intact, abnormal - Peripheral Assessment Peripheral Pulses: within normal limits - Abdominal General gastrointestinal: obese, soft, non-tender, normal bowel sounds - Integumentary Integumentary: Present: warm, dry - Musculoskeletal Musculoskeletal: 2/5 muscle strength to right upper and lower extremity, unable to move right upper and lower against gravity, 5/5 strength to left upper and lower extremity Neurological -Neurological: CN II-XII gorssly intact - Psychiatric Psychiatric: cooperative - Constitutional Vitals: Temp Pulse Resp BP Pulse Ox 97.6 F 70 12 163/82 100 09/27/18 22:30 09/27/18 23:30 09/27/18 23:30 09/27/18 23:30 09/27/18 23:30 Results - Labs CBC & Chem 7: 09/27/18 19:13 09/27/18 20:37 Labs: Laboratory Last Values WBC 6.1 K/mm3 (4.5-11.0) 09/27/18 19:13 RBC 4.97 M/mm3 (3.65-5.03) 09/27/18 19:13 Hgb 15.1 gm/dl (10.1-14.3) H 09/27/18 19:13 Hct 43.9 % (30.3-42.9) H 09/27/18 19:13 MCV 88 fl (79-97) 09/27/18 19:13 MCH 30 pg (28-32) 09/27/18 19:13 MCHC 34 % (30-34) 09/27/18 19:13 RDW 12.7 % (13.2-15.2) L 09/27/18 19:13 Plt Count 204 K/mm3 (140-440) 09/27/18 19:13 Lymph % (Auto) 29.5 % (13.4-35.0) 09/27/18 19:13 [place] % (Auto) 10.2 % (0.0-7.3) H 09/27/18 19:13 Eos % (Auto) 4.5 % (0.0-4.3) H 09/27/18 19:13 Baso % (Auto) 1.0 % (0.0-1.8) 09/27/18 19:13 Lymph # 1.8 K/mm3 (1.2-5.4) 09/27/18 19:13 [place] # 0.6 K/mm3 (0.0-0.8) 09/27/18 19:13 Eos # 0.3 K/mm3 (0.0-0.4) 09/27/18 19:13 Baso # 0.1 K/mm3 (0.0-0.1) 09/27/18 19:13 Seg Neutrophils % 54.8 % (40.0-70.0) 09/27/18 19:13 Seg Neutrophils # 3.3 K/mm3 (1.8-7.7) 09/27/18 19:13 PT 11.9 Sec. (12.2-14.9) L 09/27/18 19:13 INR 0.90 (0.87-1.13) 09/27/18 19:13 APTT 23.4 Sec. (24.2-36.6) L 09/27/18 19:13 16.7 Sec. (15.1-19.6) 09/27/18 19:13 Sodium 140 mmol/L (137-145) 09/27/18 20:37 Potassium 3.6 mmol/L (3.6-5.0) 09/27/18 20:37 Chloride 103.6 mmol/L (98-107) 09/27/18 20:37 Carbon Dioxide 23 mmol/L (22-30) 09/27/18 20:37 17 mmol/L 09/27/18 20:37 BUN 9 mg/dL (7-17) 09/27/18 20:37 0.5 mg/dL (0.7-1.2) L 09/27/18 20:37 Estimated GFR > 60 ml/min 09/27/18 20:37 18 % 09/27/18 20:37 Glucose 97 mg/dL (65-100) 09/27/18 20:37 POC Glucose 112 (70-105) H 09/27/18 19:16 Calcium 9.0 mg/dL (8.4-10.2) 09/27/18 20:37 118 units/L (30-135) 09/27/18 19:13 CK-MB (CK-2) 1.9 ng/mL (0.0-4.0) 09/27/18 19:13 CK-MB (CK-2) Rel Index 1.6 (0-4) 09/27/18 19:13 < 0.010 ng/mL (0.00-0.029) 09/27/18 19:13 - Imaging and Cardiology Chest x-ray: report reviewed (Lungs/Pleura: No acute air space or interstitial disease. ), image reviewed Imaging and Cardiology: CT Head/Brain: Findings: There is no old infarct involving the anterior left gangliocapsular re gion which correlates with the previous CT of 05/15/2018. However, there is a 9 mm focus of more subtle decrease attenuation within the left putamen which is more conspicuous than on the prior study and correlation would be needed regarding small evolving infarct within this region. There is a small old lacunar infarct within the head of the right caudate. 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 There is no clear CT evidence of acute intracranial hemorrhage or significant mass effect. The ventricular system appears unchanged in size and configuration. The visualized paranasal sinuses are clear. All CT scans at this location are performed using the CT dose reduction for ALARA by means of automated exposure control. Impression: There is old infarct involving the anterior left gangliocapsular region. However, there is been interval development of a 9 mm focus of decreased attenuation more posteriorly within the left put amen and correlation would be needed regarding developing acute infarct. There is no CT evidence of acute i ntracranial hemorrhage. Assessment and Plan Assessment and plan: 52 year old female with a history of HTN who [facility] with complaints of right-sided weakness/numbness Pt's last known normal is around 0800 this morning when she got up to use the restroom before returning to sleep. Dr. Leonard (tele-neurology) was consulted and assessed pt. Pt is not a candidate for TPA because she is out of the window. TIA R/O CVA -CT Head/brain negative for acute intracranial hemorrhage or significant mass effects. There is old infarct involving the anterior left gangliocapsular region. However, there is been interval development of a 9 mm focus of decreased attenuation more posteriorly -MRI Brain pending -Bilateral carotid Doppler pending -Echo pending -Initiate stroke protocol -Checks per stroke protocol -Start ASA and Statin -Neurology consult pending -PT/OT Eval pending HTN -Monitor BP -Allow for permissive HTN -Hold all home antihypertensive meds for now -IV hydralazine when necessary Tobacco Abuse -Current every day smoker -Counseled for cessation -Nicotine patch when necessary EToH Abuse -Counseled for cessation DVT PPX -On lovenox Advance Directives: No VTE prophylaxis?: Chemical Plan of care discussed with patient/family: Yes
[2018-09-28] MEDS ORDERED: ATIVAN IV PRN ×2 (02:00)
[2018-09-28] MEDS: HABITROL TD SCH (02:22)
[2018-09-28 06:32] LABS: BUN/Creatinine Ratio 16; Blood Urea Nitrogen 8 mg/dL (7-17); Calcium 9.1 mg/dL (8.4-10.2); Chol/HDL Ratio 3.17 %; HDL Cholesterol 52 mg/dL (40-59); Hemolysis Index 2; LDL Cholesterol,Direct 104 mg/dL (50-130)
--- NOTE | 2018-09-28 06:58 | Consultation ---
HISTORY OF PRESENT ILLNESS: This is a 52-year-old black female who presented to the Emergency Room of [facility] with right-sided numbness. She presented to the hospital with a prior history of having been hypertensive, but having been under no medical treatment. When she presented to the hospital, she complained of her right side becoming numb and after that, she developed some slurred speech, mild headache and she had some ataxia of her right arm. She was seen in the CT scan area. Review of her CT scan showed a clearcut ischemic stroke of the left anterior internal capsule measuring approximately 1 x 1 cm. This appeared to be chronic. No hemorrhage associated with it. No edema. The remainder of the cho-white matter unremarkable. No bleed is present. The patient's condition at time of evaluation shows she has clear cut weakness of the right arm. She may have a minimal speech difficulty. Cranial nerves are intact. I do not find any facial weakness. She is very ataxic, has difficulty standing, could not transfer herself from the wheelchair to the table and she had difficulty positioning herself because of generalized body weakness. She was fully alert. She did follow commands. She obviously did not have a seizure or any other focal sensory loss. IMPRESSION: Under the circumstances, she has probably had the stroke at least greater than 4-5 hours. I cannot rule out the fact she has had a previous stroke and we are now simply seeing a second stroke and MRI is more definite on this issue. Given the lack of history, I certainly would mention that she has lesion on the CT. ED is to evaluate the patient. Labs are to be obtained initially as the patient is seen only in triage for initial assessment. Further in depth assessment is currently being pursued and judgments about other factors will be pursuant to obtain EKG, labs and other necessary workup. At this point, the patient's clinical condition appears stable and certainly she does not have an intracranial bleed or mass lesion, which will require transfer to another facility. JOB# [id number] LANG/DESIRE
--- NOTE | 2018-09-28 07:43 | Progress Note ---
Subjective Date of service: 09/28/18 Interval history: seee my neurology note on the stroke alert... I reviewed the CT report from radiology and the determining issue will be the MRI as to whether there is some component of acute stroke vr the element of chronic... there is at least a chronic stroke she was not under medical managem,ent for HTN or diabetes exam c/w acute stroke see my note Objective - Vital Sign Vital Signs - 12hr 09/27/18 09/27/18 09/27/18 19:48 20:38 21:10 Temperature 98.4 F Pulse Rate 71 70 72 Respiratory 15 Rate Blood Pressure 221/131 228/130 222/123 Blood Pressure [Left] O2 Sat by Pulse 98 Oximetry 09/27/18 09/27/18 09/27/18 21:44 22:30 23:30 Temperature 97.6 F Pulse Rate 65 70 70 Respiratory 15 12 Rate Blood Pressure 207/116 Blood Pressure 168/78 163/82 [Left] O2 Sat by Pulse 100 100 Oximetry 09/28/18 09/28/18 09/28/18 00:41 01:14 01:33 Temperature 98.6 F Pulse Rate 68 65 Respiratory 20 Rate Blood Pressure Blood Pressure 143/79 [Left] O2 Sat by Pulse 100 98 Oximetry 09/28/18 09/28/18 09/28/18 01:50 04:27 04:29 Temperature 97.8 F Pulse Rate 65 65 Respiratory 18 Rate Blood Pressure 152/85 Blood Pressure [Left] O2 Sat by Pulse 96 Oximetry - Laboratory Findings CBC and BMP: 09/27/18 19:13 09/28/18 04:21 Abnormal Lab Findings: Abnormal Labs 09/27/18 09/27/18 09/27/18 19:13 19:13 19:16 Hgb 15.1 H Hct 43.9 H RDW 12.7 L [place] % (Auto) 10.2 H Eos % (Auto) 4.5 H PT 11.9 L APTT 23.4 L Potassium Creatinine POC Glucose 112 H Triglycerides 09/27/18 09/28/18 20:37 04:21 Hgb Hct RDW [place] % (Auto) Eos % (Auto) PT APTT Potassium 3.1 L Creatinine 0.5 L 0.5 L POC Glucose Triglycerides 168 H
--- NOTE | 2018-09-28 07:44 | Consultation ---
History of Present Illness - Reason for Consult Consult date: 09/28/18 - History of Present Illness see my dictated note Past History Past Medical History: hypertension Past Surgical History: Other (neck, ankle (hardware)) Social history: smoking (current everyday smoker), alcohol abuse Family history: no significant family history Medications and Allergies Allergies Allergy/AdvReac Type Severity Reaction Status Date / Time No Known Allergies Allergy Verified 10/26/17 14:43 Home Medications Medication Instructions Recorded Confirmed Last Taken Type Cyclobenzaprine [Flexeril] 10 mg PO TID PRN #20 tablet 02/01/15 Unknown Rx Ibuprofen [Motrin 800 MG tab] 800 mg PO Q8HR PRN #30 tablet 02/01/15 Unknown Rx Benzonatate [Tessalon Perles] 100 mg PO Q8HR PRN #20 capsule 10/26/17 Unknown Rx Fluticasone [Flonase] 1 spray NS QDAY #1 bottle 10/26/17 Unknown Rx Hydrocodone/Chlorphen P-Stirex 5 ml PO Q12HR PRN #100 ml 10/26/17 Unknown Rx [Tussionex Pennkinetic Susp] Naproxen [Naprosyn] 500 mg PO BID #20 tablet 10/26/17 Unknown Rx predniSONE [Prednisone] 50 mg PO DAILY #5 tablet 10/26/17 Unknown Rx amLODIPine [Norvasc] 10 mg PO DAILY #30 tab 05/15/18 Unknown Rx Active Meds: Active Medications Acetaminophen (Tylenol) 650 mg PO Q4H PRN PRN Reason: Pain MILD(1-3)/Fever >100.5/MCCOY Aspirin (Aspirin) 325 mg PO QDAY RAINE Atorvastatin Calcium (Lipitor) 40 mg PO QHS RAINE Docusate Sodium (Colace) 100 mg PO BID RAINE Enoxaparin Sodium (Lovenox) 40 mg SUB-Q QDAY RAINE Folic Acid (Folvite) 1 mg PO QDAY RAINE Hydralazine HCl (Apresoline) 10 mg IV Q4H PRN PRN Reason: BP >200/120 Lorazepam (Ativan) 2 mg IV Q1H PRN PRN Reason: CIWA-Ar 8-15 Lorazepam (Ativan) 4 mg IV Q1H PRN PRN Reason: CIWA-Ar 16-25 Morphine Sulfate (Morphine) 2 mg IV Q4H PRN PRN Reason: Pain, Moderate (4-6) Nicotine (Habitrol) 14 mg TD QDAY [facility] Last Admin: 09/28/18 02:22 Dose: 14 mg Documented by: Ondansetron HCl (Zofran) 4 mg IV Q6H PRN PRN Reason: Nausea And Vomiting Promethazine HCl (Phenergan) 25 mg WA Q6H PRN PRN Reason: Nausea And Vomiting Sodium Chloride (Sodium Chloride Flush Syringe 10 Ml) 10 ml IV BID RAINE Sodium Chloride (Sodium Chloride Flush Syringe 10 Ml) 10 ml IV PRN PRN PRN Reason: LINE FLUSH Thiamine HCl (Vitamin B-1) 100 mg PO QDAY [facility] Exam - Constitutional Vitals: Temp Pulse Resp BP Pulse Ox 97.8 F 65 18 152/85 96 09/28/18 04:29 09/28/18 04:27 09/28/18 04:27 09/28/18 04:27 09/28/18 04:27 Results - Labs CBC & Chem 7: 09/27/18 19:13 09/28/18 04:21 Labs: Abnormal lab results 09/27/18 09/27/18 09/27/18 Range/Units 19:13 19:13 19:16 Hgb 15.1 H (10.1-14.3) gm/dl Hct 43.9 H (30.3-42.9) % RDW 12.7 L (13.2-15.2) % Rush % (Auto) 10.2 H (0.0-7.3) % Eos % (Auto) 4.5 H (0.0-4.3) % PT 11.9 L (12.2-14.9) Sec. APTT 23.4 L (24.2-36.6) Sec. Potassium (3.6-5.0) mmol/L Creatinine (0.7-1.2) mg/dL POC Glucose 112 H (70-105) Triglycerides (2-149) mg/dL 09/27/18 09/28/18 Range/Units 20:37 04:21 Hgb (10.1-14.3) gm/dl Hct (30.3-42.9) % RDW (13.2-15.2) % Rush % (Auto) (0.0-7.3) % Eos % (Auto) (0.0-4.3) % PT (12.2-14.9) Sec. APTT (24.2-36.6) Sec. Potassium 3.1 L (3.6-5.0) mmol/L Creatinine 0.5 L 0.5 L (0.7-1.2) mg/dL POC Glucose (70-105) Triglycerides 168 H (2-149) mg/dL
[2018-09-28] MEDS ORDERED: HABITROL TD SCH (10:00)
--- NOTE | 2018-09-28 11:19 | Magnetic Resonance Report ---
MR brain wo con INDICATION / CLINICAL INFORMATION: 52 years Female; seizure. TECHNIQUE: Multiplanar, multisequence MR images of the brain were obtained. Some motion artifact COMPARISON: CT - 09/27/2018 FINDINGS: BRAIN / INTRACRANIAL CONTENTS: Ischemic changes are seen in the mid to posterior corpus striatal ana on on the left extending from the posterior body of the caudate towards the posterior putamen. There is also small focus of ischemia in the anterior lentiform nucleus on the left. These findings are pos itive on ADC map, suggesting an acute/early subacute age. Otherwise, no acute hemorrhage, mass effect, midline shift, hydrocephalus, or acute, large territoria l infarct. Old, small corpus striatal infarct is seen anteriorly on the left. There are [id number] areas of increased signal intensity on FLAIR imaging in the white matter o f the cerebral hemispheres. These are nonspecific findings and may be related to microangiopathy (hyp ertension, diabetes, atherosclerosis), given the patient's age. Pontine disease noted. CRANIOCERVICAL JUNCTION: No significant abnormality. VASCULAR FLOW-VOIDS: No significant abnormality. ORBITS: No significant abnormality of visualized orbits. SINUSES / MASTOIDS: Mild mucosal thickening seen in the ethmoids. ADDITIONAL FINDINGS: None. IMPRESSION: 1. Ischemic changes in the left gangliocapsular region as described above. No signs of hemorrhagic tr ansformation. 2. Otherwise, no focal mass, hemorrhage, hydrocephalus, or large infarct seen. Signer Name: Chas Kelly MD, III Signed: 09/28/2018 11:14 AM Workstation Name: [id number]
--- NOTE | 2018-09-28 11:22 | Magnetic Resonance Report ---
MR MRA/MRV head wo con INDICATION / CLINICAL INFORMATION: 52 years Female; cva. TECHNIQUE: 3-D time of flight. NASCET type criteria used to evaluate stenoses. COMPARISON: None available. FINDINGS: INTERNAL CAROTID ARTERIES: Areas of mild narrowing are seen in the communicating portions of both int ernal carotid arteries. These findings are not felt to be hemodynamically significant. VERTEBROBASILAR SYSTEM: No significant narrowing appreciated. DISTAL BRANCHES: Distal branches of the anterior, middle, and posterior cerebral arteries are fairly symmetric in appearance and number. Short segment area of moderate to high-grade narrowing suggested in proximal MCA trifurcation branches on the right. Focal areas of mild narrowing may be present in proximal MCA trifurcation branches on the left. Focal areas of short segment narrowing suggested in t he P1 - 2 junctional regions of both posterior cerebral arteries. ANEURYSM: None identified. There are small infundibula associated with small posterior communicating arteries bilaterally. IMPRESSION: Multiple areas of short segment narrowing, as described above. Signer Name: Chas Kelly MD, III Signed: 09/28/2018 11:18 AM Workstation Name: [id number]
--- NOTE | 2018-09-28 11:39 | Vascular Lab Report ---
BILATERAL CAROTID DOPPLER ULTRASOUND INDICATION : stroke TECHNIQUE: Grayscale and color Doppler imaging performed through the neck. COMPARISON: None FINDINGS: Right: There is no significant atherosclerotic disease. Peak systolic velocity in the CCA is 61 cm/ s with end-diastolic velocity of 16 cm/s. Peak systolic velocity in the proximal ICA is 76 cm/s with end-diastolic velocity of 22 cm/s. ICA to CCA ratio is less than 2. There is antegrade flow in the E CA and the vertebral artery. Left: There is no significant atherosclerotic disease. Peak systolic velocity in the CCA is 58 cm/s w ith end-diastolic velocity of 13 cm/s. Peak systolic velocity in the proximal ICA is 76 cm/s with end -diastolic velocity of 30 cm/s. ICA to CCA ratio is less than 2. There is antegrade flow in the ECA and the vertebral artery. IMPRESSION: No hemodynamically significant stenosis by NASCET criteria. Signer Name: Frankie Mar Jr, MD Signed: 09/28/2018 11:35 AM Workstation Name: [id number]
[2018-09-28] MEDS: ASPIRIN PO SCH (13:15)
[2018-09-28] MEDS: FOLVITE PO SCH (13:16)
[2018-09-28] MEDS: LOVENOX SUB-Q SCH (13:16)
[2018-09-28] MEDS: SODIUM CHLORIDE FLUSH SYRINGE 10 ML IV SCH ×2 (13:16→22:17)
[2018-09-28] MEDS: COLACE PO SCH ×2 (13:16→22:16)
[2018-09-28] MEDS: VITAMIN B-1 PO SCH (13:17)
--- NOTE | 2018-09-28 13:51 | Progress Note ---
Subjective Date of service: 09/28/18 Interval history: aas I commented on in the previous note there is clear acute small vessel in a different vascular area from the old stroke this is small vessel lipid/ diabetic medical management rec'ed this is based on the MRI scan today Objective - Vital Sign Vital Signs - 12hr 09/28/18 09/28/18 09/28/18 01:50 04:27 04:29 Temperature 97.8 F Pulse Rate 65 65 Respiratory 18 Rate Blood Pressure 152/85 O2 Sat by Pulse 96 Oximetry 09/28/18 09/28/18 07:39 07:56 Temperature 98.5 F Pulse Rate 64 Respiratory 18 Rate Blood Pressure 148/77 O2 Sat by Pulse 96 100 Oximetry - Laboratory Findings CBC and BMP: 09/27/18 19:13 09/28/18 04:21 Abnormal Lab Findings: Abnormal Labs 09/27/18 09/27/18 09/27/18 19:13 19:13 19:16 Hgb 15.1 H Hct 43.9 H RDW 12.7 L Christian % (Auto) 10.2 H Eos % (Auto) 4.5 H PT 11.9 L APTT 23.4 L Potassium Creatinine POC Glucose 112 H Triglycerides 09/27/18 09/28/18 20:37 04:21 Hgb Hct RDW Christian % (Auto) Eos % (Auto) PT APTT Potassium 3.1 L Creatinine 0.5 L 0.5 L POC Glucose Triglycerides 168 H
--- NOTE | 2018-09-28 15:59 | Consultation ---
Past History Past Medical History: hypertension Past Surgical History: Other (neck, ankle (hardware)) Social history: smoking (current everyday smoker), alcohol abuse Family history: no significant family history Medications and Allergies Allergies Allergy/AdvReac Type Severity Reaction Status Date / Time No Known Allergies Allergy Verified 10/26/17 14:43 Home Medications Medication Instructions Recorded Confirmed Last Taken Type Cyclobenzaprine [Flexeril] 10 mg PO TID PRN #20 tablet 02/01/15 Unknown Rx Ibuprofen [Motrin 800 MG tab] 800 mg PO Q8HR PRN #30 tablet 02/01/15 Unknown Rx Benzonatate [Tessalon Perles] 100 mg PO Q8HR PRN #20 capsule 10/26/17 Unknown Rx Fluticasone [Flonase] 1 spray NS QDAY #1 bottle 10/26/17 Unknown Rx Hydrocodone/Chlorphen P-Stirex 5 ml PO Q12HR PRN #100 ml 10/26/17 Unknown Rx [Tussionex Pennkinetic Susp] Naproxen [Naprosyn] 500 mg PO BID #20 tablet 10/26/17 Unknown Rx predniSONE [Prednisone] 50 mg PO DAILY #5 tablet 10/26/17 Unknown Rx amLODIPine [Norvasc] 10 mg PO DAILY #30 tab 05/15/18 Unknown Rx Active Meds: Active Medications Acetaminophen (Tylenol) 650 mg PO Q4H PRN PRN Reason: Pain MILD(1-3)/Fever >100.5/MCCOY Aspirin (Aspirin) 325 mg PO QDAY [facility] Last Admin: 09/28/18 13:15 Dose: 325 mg Documented by: Atorvastatin Calcium (Lipitor) 40 mg PO QHS [facility] Docusate Sodium (Colace) 100 mg PO BID [facility] Last Admin: 09/28/18 13:16 Dose: 100 mg Documented by: Enoxaparin Sodium (Lovenox) 40 mg SUB-Q QDAY [facility] Last Admin: 09/28/18 13:16 Dose: 40 mg Documented by: Folic Acid (Folvite) 1 mg PO QDAY [facility] Last Admin: 09/28/18 13:16 Dose: 1 mg Documented by: Hydralazine HCl (Apresoline) 10 mg IV Q4H PRN PRN Reason: BP >200/120 Lorazepam (Ativan) 2 mg IV Q1H PRN PRN Reason: CIWA-Ar 8-15 Lorazepam (Ativan) 4 mg IV Q1H PRN PRN Reason: CIWA-Ar 16-25 Morphine Sulfate (Morphine) 2 mg IV Q4H PRN PRN Reason: Pain, Moderate (4-6) Nicotine (Habitrol) 14 mg TD QDAY [facility] Last Admin: 09/28/18 02:22 Dose: 14 mg Documented by: Ondansetron HCl (Zofran) 4 mg IV Q6H PRN PRN Reason: Nausea And Vomiting Promethazine HCl (Phenergan) 25 mg DE Q6H PRN PRN Reason: Nausea And Vomiting Sodium Chloride (Sodium Chloride Flush Syringe 10 Ml) 10 ml IV BID [facility] Last Admin: 09/28/18 13:16 Dose: 10 ml Documented by: Sodium Chloride (Sodium Chloride Flush Syringe 10 Ml) 10 ml IV PRN PRN PRN Reason: LINE FLUSH Thiamine HCl (Vitamin B-1) 100 mg PO QDAY [facility] Last Admin: 09/28/18 13:17 Dose: 100 mg Documented by: Physical Examination - Vital Signs Vital Signs: Vital Signs Pulse Resp BP Pulse Ox 80 18 245/130 100 09/27/18 19:06 09/27/18 19:06 09/27/18 19:06 09/27/18 19:06 Results - Laboratory Findings CBC and BMP: 09/27/18 19:13 09/28/18 04:21 Abnormal Lab Findings: Abnormal Labs 09/27/18 09/27/18 09/27/18 19:13 19:13 19:16 Hgb 15.1 H Hct 43.9 H RDW 12.7 L Fergus % (Auto) 10.2 H Eos % (Auto) 4.5 H PT 11.9 L APTT 23.4 L Potassium Creatinine POC Glucose 112 H Triglycerides 09/27/18 09/28/18 20:37 04:21 Hgb Hct RDW Fergus % (Auto) Eos % (Auto) PT APTT Potassium 3.1 L Creatinine 0.5 L 0.5 L POC Glucose Triglycerides 168 H Assessment and Plan Neurologic consult report Shilpa Raines is a 51-year-old female with history of hypertension for which she has not taking medication regularly and she states that she was off medication continuously for one month prior to the event which led her to come to the hospital. Patient stated that on the morning of September 272018 she woke up from sleep at 8 AM when she was fine. She went to bed again at 8 am and woke up at 12 when she found that she was not on the right side and also complained of right facial numbness. Patient noticed equal weakness of right upper and lower extremity as well. She came to the hospital at 3 PM and tPA was not given becau se she was out of the window for TPA. CT scan obtained after admission showed that there was infarct in the left basal ganglia including the body of the caudate nucleus and also putamen. MRI of the brain showed that the lesion was acute to subacute. Workup on extracranial facet did not show any abnormality however MRA of the brain showed multiple areas of short segmental narrowing. Echocardiogram did not show any significant abnormality except for mild mitral regurgitation and some thickening of mitral valves. Physical examination. Patient is alert and appropriate has insight into her p roblems and answers questions appropriately.She has a normal mental status. Heart. Normal rate and rhythm. Carotids. Both palpable. No Bruits. Cranial nerves. Patient had numbness on the right side of the face. No significant facial weakness was noted. Tongue protruded to the left side. Ext raocular movements are intact. Rest of the cranial nerves were within normal limit. Motor. Patient had weakness in the right upper and lower extremities both proximally and distally. Weakness on the right upper extremity is almost equal to the weakness of the right lower extremity. Reflexes. Patient has increased reflexes on the right upper and lower extremities with upgoing toe on the right side. Sensory. Patient had decreased sensation to light touch on the right upper and lower extremity as compared to the left Impression #1 right sided weakness and numbness from acute infarct in the left basal ganglia involving the cardiac nucleus and putamen. Recommendation. #1 patient was advised to take antihypertensive medication regularly. She request understanding. She should take aspirin 81 mg by mouth daily regularly and also take statin regularly and should take low-cholesterol and food low in saturated fat. #2. Patient should contact physical therapy and occupational therapy for higher right-sided weakness. #3. After discharges patient should be evaluated by vascular neurosurgeon as outpatient for higher multiple areas of short segment narrowing of intracranial vessels.
--- NOTE | 2018-09-28 17:18 | Progress Note ---
Assessment and Plan Assessment and plan: Patient is a 52 yo woman with a history tobacco dependency, hypertension with non-adherence to medication x 1 month and alcohol abuse who presented to [facility] ED with right sided weakness. She was found to have acute stroke but outside the therapeutic window for tPA. * MRI brain without contrast Impression IMPRESSION: 1. Ischemic changes in the left gangliocapsular region as described above. No signs of hemorrhagic transformation. 2. Otherwise, no focal mass, hemorrhage, hydrocephalus, or large infarct seen. * MRA head without contrast INTERNAL CAROTID ARTERIES: Areas of mild narrowing are seen in the communicating portions of both internal carotid arteries. These findings are not felt to be hemodynamically significant. VERTEBROBASILAR SYSTEM: No significant narrowing appreciated. DISTAL BRANCHES: Distal branches of the anterior, middle, and posterior cerebral arteries are fairly symmetric in appearance and number. Short segment area of moderate to high-grade narrowing suggested in proximal MCA trifurcation branches on the right. Focal areas of mild narrowing may be present in proximal MCA trifurcation branches on the left. Focal areas of short segment narrowing suggested in the P1 - 2 ju nctional regions of both posterior cerebral arteries. ANEURYSM: None identified. There are small infundibula associated with small posterior communicating arteries bilaterally. IMPRESSION: Multiple areas of short segment narrowing, as described above. * Carotid Doppler U/S bilateral: No significant stenosis * Echocardiogram did not show any significant abnormality except for mild mitral regurgitation and some thickening of mitral valves. Acute ischemic stroke involving left basal ganglia involving the cardiac nucleus and putamen causing right hemiparesis: treat with Aspirin and statin, PT/OT Hypertension: Allow for permissive HTN, -Hold all home antihypertensive meds for now, -IV hydralazine when necessary, educational guidance counselor on compliance Tobacco Abuse: Current every day smoker, Counseled for cessation, Nicotine patch when necessary Intracranial stenosis: Outpatient NSY evaluation, none here and not emergent to transfer EToH Abuse: Counseled for cessation DVT PPX: On lovenox History Interval history: Patient was seen and examined. Follow-up on current diagnosis of CVA. No overnight events reported to me. Patient denies any chest pain, shortness breath, nausea/vomiting or severe headaches. Imaging, nursing note, chart, labs and old chart reviewed. Discussed with patient. Hospitalist Physical - Physical exam Narrative exam: Gen: WDWN, NAD, Awake, Alert, Orientated HEENT: NCAT, EOMI, PERRL, OP Clear Neck: supple, no adenopathy, no thyromegaly, no JVD CVS/Heart: RRR, normal S1S2, pulses present bilaterally Chest/Lungs: CTA B, Symmetrical chest expansion, good air entry bilaterally GI/Abdomen: soft, NTND, good bowel sounds, no guarding or rebound /Bladder: no suprapubic tenderness, no CVA or paraspinal tenderness Extermity/Skin: no c/c/e, no obvious rash MSK: FROM x 3 Neuro: CN 2-12 grossly intact except tongue protrudes left, right side sensory deficit, +right arm drift, right hemiparesis, expressive dysarthria Psych: calm - Constitutional Vitals: Temp Pulse Resp BP Pulse Ox 98.5 F 64 18 148/77 98 09/28/18 07:39 09/28/18 07:39 09/28/18 07:39 09/28/18 07:39 09/28/18 13:00 Results - Labs CBC & Chem 7: 09/27/18 19:13 09/28/18 04:21 Labs: Laboratory Last Values WBC 6.1 K/mm3 (4.5-11.0) 09/27/18 19:13 RBC 4.97 M/mm3 (3.65-5.03) 09/27/18 19:13 Hgb 15.1 gm/dl (10.1-14.3) H 09/27/18 19:13 Hct 43.9 % (30.3-42.9) H 09/27/18 19:13 MCV 88 fl (79-97) 09/27/18 19:13 MCH 30 pg (28-32) 09/27/18 19:13 MCHC 34 % (30-34) 09/27/18 19:13 RDW 12.7 % (13.2-15.2) L 09/27/18 19:13 Plt Count 204 K/mm3 (140-440) 09/27/18 19:13 Lymph % (Auto) 29.5 % (13.4-35.0) 09/27/18 19:13 Chase % (Auto) 10.2 % (0.0-7.3) H 09/27/18 19:13 Eos % (Auto) 4.5 % (0.0-4.3) H 09/27/18 19:13 Baso % (Auto) 1.0 % (0.0-1.8) 09/27/18 19:13 Lymph # 1.8 K/mm3 (1.2-5.4) 09/27/18 19:13 Chase # 0.6 K/mm3 (0.0-0.8) 09/27/18 19:13 Eos # 0.3 K/mm3 (0.0-0.4) 09/27/18 19:13 Baso # 0.1 K/mm3 (0.0-0.1) 09/27/18 19:13 Seg Neutrophils % 54.8 % (40.0-70.0) 09/27/18 19:13 Seg Neutrophils # 3.3 K/mm3 (1.8-7.7) 09/27/18 19:13 PT 11.9 Sec. (12.2-14.9) L 09/27/18 19:13 INR 0.90 (0.87-1.13) 09/27/18 19:13 APTT 23.4 Sec. (24.2-36.6) L 09/27/18 19:13 16.7 Sec. (15.1-19.6) 09/27/18 19:13 Sodium 143 mmol/L (137-145) 09/28/18 04:21 Potassium 3.1 mmol/L (3.6-5.0) L 09/28/18 04:21 Chloride 103.1 mmol/L (98-107) 09/28/18 04:21 Carbon Dioxide 26 mmol/L (22-30) 09/28/18 04:21 17 mmol/L 09/28/18 04:21 BUN 8 mg/dL (7-17) 09/28/18 04:21 0.5 mg/dL (0.7-1.2) L 09/28/18 04:21 Estimated GFR > 60 ml/min 09/28/18 04:21 16 % 09/28/18 04:21 Glucose 85 mg/dL (65-100) 09/28/18 04:21 POC Glucose 112 (70-105) H 09/27/18 19:16 4.9 % (4-6) 09/28/18 04:21 Calcium 9.1 mg/dL (8.4-10.2) 09/28/18 04:21 118 units/L (30-135) 09/27/18 19:13 CK-MB (CK-2) 1.9 ng/mL (0.0-4.0) 09/27/18 19:13 CK-MB (CK-2) Rel Index 1.6 (0-4) 09/27/18 19:13 < 0.010 ng/mL (0.00-0.029) 09/27/18 19:13 Triglycerides 168 mg/dL (2-149) H 09/28/18 04:21 Cholesterol 165 mg/dL (50-199) 09/28/18 04:21 104 mg/dL (50-130) 09/28/18 04:21 52 mg/dL (40-59) 09/28/18 04:21 3.17 % 09/28/18 04:21 Active Medications - Current Medications Current Medications: Generic Name Dose Route Start Last Admin Trade Name Freq PRN Reason Stop Dose Admin Acetaminophen 650 mg 09/27/18 23:18 Tylenol PO Q4H PRN Pain MILD(1-3)/Fever >100.5/MCCOY Aspirin 325 mg 09/28/18 10:00 09/28/18 13:15 Aspirin PO 325 mg QDAY RAINE Administration Atorvastatin Calcium 40 mg 09/28/18 22:00 Lipitor PO QHS RAINE Docusate Sodium 100 mg 09/28/18 10:00 09/28/18 13:16 Colace PO 100 mg BID RAINE Administration Enoxaparin Sodium 40 mg 09/28/18 10:00 09/28/18 13:16 Lovenox SUB-Q 40 mg QDAY RAINE Administration Folic Acid 1 mg 09/28/18 10:00 09/28/18 13:16 Folvite PO 1 mg QDAY RAINE Administration Hydralazine HCl 10 mg 09/28/18 03:04 Apresoline IV Q4H PRN BP >200/120 Lorazepam 2 mg 09/28/18 02:00 Ativan IV Q1H PRN CIWA-Ar 8-15 Lorazepam 4 mg 09/28/18 02:00 Ativan IV Q1H PRN CIWA-Ar 16-25 Morphine Sulfate 2 mg 09/27/18 23:34 Morphine IV Q4H PRN Pain, Moderate (4-6) Nicotine 14 mg 09/28/18 03:00 09/28/18 02:22 Habitrol TD 14 mg QDAY RAINE Administration Ondansetron HCl 4 mg 09/27/18 23:42 Zofran IV Q6H PRN Nausea And Vomiting Promethazine HCl 25 mg 09/27/18 23:34 Phenergan CO Q6H PRN Nausea And Vomiting Sodium Chloride 10 ml 09/28/18 10:00 09/28/18 13:16 Sodium Chloride Flush Syringe 10 Ml IV 10 ml BID RAINE Administration Sodium Chloride 10 ml 09/27/18 23:18 Sodium Chloride Flush Syringe 10 Ml IV PRN PRN LINE FLUSH Thiamine HCl 100 mg 09/28/18 10:00 09/28/18 13:17 Vitamin B-1 PO 100 mg QDAY [facility]INE Administration
[2018-09-28] MEDS ORDERED: K-DUR PO ONE ×2 (19:00→22:00)
[2018-09-28 20:11] LABS: Color,Urine Yellow (Yellow)
[2018-09-28 20:12] LABS: Bacteria,Urine 1+ /HPF (Negative); Bilirubin,Urine NEG (Negative); Blood,Urine NEG (Negative); Mucus,Urine FEW /HPF; Protein,Urine <15 mg/dL mg/dL (Negative); Urobilinogen,Urine < 2.0 mg/dL (<2.0)
[2018-09-29] MEDS: ASPIRIN PO SCH (09:20)
[2018-09-29] MEDS: FOLVITE PO SCH (09:20)
[2018-09-29] MEDS: SODIUM CHLORIDE FLUSH SYRINGE 10 ML IV SCH ×2 (09:21→22:16)
[2018-09-29] MEDS: LOVENOX SUB-Q SCH (09:21)
[2018-09-29] MEDS: HABITROL TD SCH (09:21)
[2018-09-29] MEDS: VITAMIN B-1 PO SCH (09:21)
[2018-09-29] MEDS: COLACE PO SCH ×2 (09:21→22:13)
--- NOTE | 2018-09-29 10:16 | Cat Scan Report ---
CT HEAD WITHOUT CONTRAST INDICATION : MAIN: worsening left sided weakness TECH NOTES: PT C/O RIGHT SIDE WEAKNESS. HX: STROKE. TECHNIQUE: Axial imaging performed from the skull apex through the skull base without the use of con trast. Sagittal and coronal reformatted images. All CT scans at this location are performed using C T dose reduction for ALARA by means of automated exposure control. COMPARISON: CT head dated 09/27/2018. MR brain dated 09/28/2018. FINDINGS: Parenchyma: Small areas of hypoattenuation in the left basal ganglia and left crespo radiata are aga in identified and consistent with subacute ischemic changes. These areas of ischemia appear unchanged since the recent MRI brain. No new areas of diminished attenuation are appreciated. The remaining br ain parenchyma is within normal limits. No evidence for hemorrhage, mass or extra-axial fluid collect ion. Ventricles: Ventricles are normal in size and appear symmetric. Bones: No acute osseous abnormality. Sinuses: Sinuses and mastoid air cells are clear. Soft tissues: Soft tissues including the orbits appear normal. IMPRESSION: Focal areas of subacute ischemia in the left basal ganglia and left crespo radiata which appear stable since the MR brain dated 09/28/2018. No new acute process is appreciated. Signer Name: Frankie Mar Jr, MD Signed: 09/29/2018 10:11 AM Workstation Name: [id number]
--- NOTE | 2018-09-29 10:57 | Progress Note ---
Assessment and Plan Assessment and plan: Patient is a 52 yo woman with a history tobacco dependency, hypertension with non-adherence to medication x 1 month and alcohol abuse who presented to [facility] ED with right sided weakness. She was found to have acute stroke but outside the therapeutic window for tPA. On 09/29/18, patient having worsening right sided weakness, now completely paralyzed upper extremity but lower right extremity does twitch but she is no longer able to lift buffy right leg. Stat CT head done and does not show hemorrhage conversion or worsening of stroke. * MRI brain without contrast Impression IMPRESSION: 1. Ischemic changes in the left gangliocapsular region as described above. No signs of hemorrhagic transformation. 2. Otherwise, no focal mass, hemorrhage, hydrocephalus, or large infarct seen. * MRA head without contrast INTERNAL CAROTID ARTERIES: Areas of mild narrowing are seen in the communicating portions of both internal carotid arteries. These findings are not felt to be hemodynamically significant. VERTEBROBASILAR SYSTEM: No significant narrowing appreciated. DISTAL BRANCHES: Distal branches of the anterior, middle, and posterior cerebral arteries are fairly symmetric in appearance and number. Short segment area of moderate to high-grade narrowing suggested in proximal MCA trifurcation branches on the right. Focal areas of mild narrowing may be present in proximal MCA trifurcation branches on the left. Focal areas of short segment narrowing suggested in the P1 - 2 junctional regions of both posterior cerebral arteries. ANEURYSM: None identified. There are small infundibula associated with small posterior communicating arteries bilaterally. IMPRESSION: Multiple areas of short segment narrowing, as described above. * Carotid Doppler U/S bilateral: No significant stenosis * Echocardiogram did not show any significant abnormality except for mild mitral regurgitation and some thickening of mitral valves. Acute ischemic stroke involving left basal ganglia involving the cardiac nucleus and putamen causing right hemiparesis: treat with Aspirin and statin, PT/OT Hypertension: Allow for permissive HTN, -Hold all home antihypertensive meds for now, -IV hydralazine when necessary, community health counselor on compliance Tobacco Abuse: Current every day smoker, Counseled for cessation, Nicotine patch when necessary Intracranial stenosis: Outpatient NSY evaluation, none here and not emergent to transfer EToH Abuse: Counseled for cessation DVT PPX: On lovenox Disposition: continue inpatient care, difficult to place in rehab because she has no insurance. Family in [place], she lives alone and has 18 steps to her upstairs bedroom. We talked as length about having one of her 5 sons or other family members to come and care for her. She will need to file for disability. She will need to move the upstairs bedroom for down stairs. She will need [facility] PT/OT. She most likely will need a wheelchair. History Interval history: Patient was seen and examined. Follow-up on current diagnosis of CVA. No overnight events reported to me. Patient denies any chest pain, shortness breath, nausea/vomiting or severe headaches. Imaging, nursing note, chart, labs and old chart reviewed. Discussed with patient. This morning she is having worse wade right sided weakness, now completely paralyzed upper extermity, low right extremity does twitch but no longer able to lift leg. Stat CT head done and does not show hemorrhage conversion or extension of new stroke Hospitalist Physical - Physical exam Narrative exam: Gen: WDWN, NAD, Awake, Alert, Orientated HEENT: NCAT, EOMI, PERRL, OP Clear Neck: supple, no adenopathy, no thyromegaly, no JVD CVS/Heart: RRR, normal S1S2, pulses present bilaterally Chest/Lungs: CTA B, Symmetrical chest expansion, good air entry bilaterally GI/Abdomen: soft, NTND, good bowel sounds, no guarding or rebound /Bladder: no suprapubic tenderness, no CVA or paraspinal tenderness Extermity/Skin: no c/c/e, no obvious rash MSK: FROM x 3 Neuro: CN 2-12 grossly intact except tongue protrudes left, right side sensory deficit, +right arm drift, right hemiparesis, expressive dysarthria Psych: calm - Constitutional Vitals: Temp Pulse Resp BP Pulse Ox 98.9 F 73 16 139/76 95 09/29/18 09:09 09/29/18 09:09 09/29/18 09:09 09/29/18 09:09 09/29/18 09:09 Results - Labs CBC & Chem 7: 09/27/18 19:13 09/28/18 04:21 Labs: Laboratory Last Values WBC 6.1 K/mm3 (4.5-11.0) 09/27/18 19:13 RBC 4.97 M/mm3 (3.65-5.03) 09/27/18 19:13 Hgb 15.1 gm/dl (10.1-14.3) H 09/27/18 19:13 Hct 43.9 % (30.3-42.9) H 09/27/18 19:13 MCV 88 fl (79-97) 09/27/18 19:13 MCH 30 pg (28-32) 09/27/18 19:13 MCHC 34 % (30-34) 09/27/18 19:13 RDW 12.7 % (13.2-15.2) L 09/27/18 19:13 Plt Count 204 K/mm3 (140-440) 09/27/18 19:13 Lymph % (Auto) 29.5 % (13.4-35.0) 09/27/18 19:13 [place] % (Auto) 10.2 % (0.0-7.3) H 09/27/18 19:13 Eos % (Auto) 4.5 % (0.0-4.3) H 09/27/18 19:13 Baso % (Auto) 1.0 % (0.0-1.8) 09/27/18 19:13 Lymph # 1.8 K/mm3 (1.2-5.4) 09/27/18 19:13 [place] # 0.6 K/mm3 (0.0-0.8) 09/27/18 19:13 Eos # 0.3 K/mm3 (0.0-0.4) 09/27/18 19:13 Baso # 0.1 K/mm3 (0.0-0.1) 09/27/18 19:13 Seg Neutrophils % 54.8 % (40.0-70.0) 09/27/18 19:13 Seg Neutrophils # 3.3 K/mm3 (1.8-7.7) 09/27/18 19:13 PT 11.9 Sec. (12.2-14.9) L 09/27/18 19:13 INR 0.90 (0.87-1.13) 09/27/18 19:13 APTT 23.4 Sec. (24.2-36.6) L 09/27/18 19:13 16.7 Sec. (15.1-19.6) 09/27/18 19:13 Sodium 143 mmol/L (137-145) 09/28/18 04:21 Potassium 3.1 mmol/L (3.6-5.0) L 09/28/18 04:21 Chloride 103.1 mmol/L (98-107) 09/28/18 04:21 Carbon Dioxide 26 mmol/L (22-30) 09/28/18 04:21 17 mmol/L 09/28/18 04:21 BUN 8 mg/dL (7-17) 09/28/18 04:21 0.5 mg/dL (0.7-1.2) L 09/28/18 04:21 Estimated GFR > 60 ml/min 09/28/18 04:21 16 % 09/28/18 04:21 Glucose 85 mg/dL (65-100) 09/28/18 04:21 POC Glucose 112 (70-105) H 09/27/18 19:16 4.9 % (4-6) 09/28/18 04:21 Calcium 9.1 mg/dL (8.4-10.2) 09/28/18 04:21 118 units/L (30-135) 09/27/18 19:13 CK-MB (CK-2) 1.9 ng/mL (0.0-4.0) 09/27/18 19:13 CK-MB (CK-2) Rel Index 1.6 (0-4) 09/27/18 19:13 < 0.010 ng/mL (0.00-0.029) 09/27/18 19:13 Triglycerides 168 mg/dL (2-149) H 09/28/18 04:21 Cholesterol 165 mg/dL (50-199) 09/28/18 04:21 104 mg/dL (50-130) 09/28/18 04:21 52 mg/dL (40-59) 09/28/18 04:21 3.17 % 09/28/18 04:21 Yellow (Yellow) 09/28/18 04:15 Slightly-cloudy (Clear) 09/28/18 04:15 5.0 (5.0-7.0) 09/28/18 04:15 Ur Specific [place] 1.011 (1.003-1.030) 09/28/18 04:15 <15 mg/dl mg/dL (Negative) 09/28/18 04:15 Neg mg/dL (Negative) 09/28/18 04:15 Neg mg/dL (Negative) 09/28/18 04:15 Neg (Negative) 09/28/18 04:15 Neg (Negative) 09/28/18 04:15 Neg (Negative) 09/28/18 04:15 < 2.0 mg/dL (<2.0) 09/28/18 04:15 Ur Leukocyte Esterase Neg (Negative) 09/28/18 04:15 2.0 /HPF (0.0-6.0) 09/28/18 04:15 2.0 /HPF (0.0-6.0) 09/28/18 04:15 U Epithel Cells (Auto) 7.0 /HPF (0-13.0) 09/28/18 04:15 1+ /HPF (Negative) 09/28/18 04:15 Few /HPF 09/28/18 04:15 Active Medications - Current Medications Current Medications: Generic Name Dose Route Start Last Admin Trade Name Freq PRN Reason Stop Dose Admin Acetaminophen 650 mg 09/27/18 23:18 Tylenol PO Q4H PRN Pain MILD(1-3)/Fever >100.5/MCCOY Aspirin 325 mg 09/28/18 10:00 09/29/18 09:20 Aspirin PO 325 mg QDAY RAINE Administration Atorvastatin Calcium 40 mg 09/28/18 22:00 09/28/18 22:16 Lipitor PO 40 mg QHS RAINE Administration Docusate Sodium 100 mg 09/28/18 10:00 09/29/18 09:21 Colace PO 100 mg BID RAINE Administration Enoxaparin Sodium 40 mg 09/28/18 10:00 09/29/18 09:21 Lovenox SUB-Q 40 mg QDAY RAINE Administration Folic Acid 1 mg 09/28/18 10:00 09/29/18 09:20 Folvite PO 1 mg QDAY RAINE Administration Hydralazine HCl 10 mg 09/28/18 03:04 Apresoline IV Q4H PRN BP >200/120 Lorazepam 2 mg 09/28/18 02:00 Ativan IV Q1H PRN CIWA-Ar 8-15 Lorazepam 4 mg 09/28/18 02:00 Ativan IV Q1H PRN CIWA-Ar 16-25 Morphine Sulfate 2 mg 09/27/18 23:34 Morphine IV Q4H PRN Pain, Moderate (4-6) Nicotine 14 mg 09/28/18 03:00 09/29/18 09:21 Habitrol TD 14 mg QDAY RAINE Administration Ondansetron HCl 4 mg 09/27/18 23:42 Zofran IV Q6H PRN Nausea And Vomiting Promethazine HCl 25 mg 09/27/18 23:34 Phenergan NE Q6H PRN Nausea And Vomiting Sodium Chloride 10 ml 09/28/18 10:00 09/29/18 09:21 Sodium Chloride Flush Syringe 10 Ml IV 10 ml BID ARINE Administration Sodium Chloride 10 ml 09/27/18 23:18 Sodium Chloride Flush Syringe 10 Ml IV PRN PRN LINE FLUSH Thiamine HCl 100 mg 09/28/18 10:00 09/29/18 09:21 Vitamin B-1 PO 100 mg QDAY RAINE Administration
[2018-09-29] MEDS: APRESOLINE IV PRN ×2 (17:46→22:13)
[2018-09-30] MEDS: LOVENOX SUB-Q SCH (10:16)
[2018-09-30] MEDS: VITAMIN B-1 PO SCH (10:16)
[2018-09-30] MEDS: ASPIRIN PO SCH (10:16)
[2018-09-30] MEDS: COLACE PO SCH (10:17)
[2018-09-30] MEDS: FOLVITE PO SCH (10:17)
[2018-09-30] MEDS: SODIUM CHLORIDE FLUSH SYRINGE 10 ML IV SCH (10:17)
[2018-09-30] MEDS: HABITROL TD SCH (10:17)
[2018-09-30 14:41] VITALS: BP 177/88
--- NOTE | 2018-09-30 16:47 | Progress Note ---
Assessment and Plan Assessment and plan: Patient is a 52 yo woman with a history tobacco dependency, hypertension with non-adherence to medication x 1 month and alcohol abuse who [facility] with right sided weakness. She was found to have acute stroke but outside the therapeutic window for tPA. On 09/29/18, patient having worsening right sided weakness, now completely paralyzed upper extremity but lower right extremity does twitch but she is no longer able to lift buffy right leg. Stat CT head done and does not show hemorrhage conversion or worsening of stroke. * MRI brain without contrast Impression IMPRESSION: 1. Ischemic changes in the left gangliocapsular region as described above. No signs of hemorrhagic transformation. 2. Otherwise, no focal mass, hemorrhage, hydrocephalus, or large infarct seen. * MRA head without contrast INTERNAL CAROTID ARTERIES: Areas of mild narrowing are seen in the communicating portions of both internal carotid arteries. These findings are not felt to be hemodynamically significant. VERTEBROBASILAR SYSTEM: No significant narrowing appreciated. DISTAL BRANCHES: Distal branches of the anterior, middle, and posterior cerebral arteries are fairly symmetric in appearance and number. Short segment area of moderate to high-grade narrowing suggested in proximal MCA trifurcation branches on the right. Focal areas of mild narrowing may be present in proximal MCA trifurcation branches on the left. Focal areas of short segment narrowing suggested in the P1 - 2 junctional regions of both posterior cerebral arteries. ANEURYSM: None identified. There are small infundibula associated with small posterior communicating arteries bilaterally. IMPRESSION: Multiple areas of short segment narrowing, as described above. * Carotid Doppler U/S bilateral: No significant stenosis * Echocardiogram did not show any significant abnormality except for mild mitral regurgitation and some thickening of mitral valves. Acute ischemic stroke involving left basal ganglia involving the cardiac nucleus and putamen causing right hemiparesis: treat with Aspirin and statin, PT/OT Hypertension: Allow for permissive HTN, -Hold all home antihypertensive meds for now, -IV hydralazine when necessary, general counselor on compliance Tobacco Abuse: Current every day smoker, Counseled for cessation, Nicotine patch when necessary Intracranial stenosis: Outpatient NSY evaluation, none here and not emergent to transfer EToH Abuse: Counseled for cessation DVT PPX: On lovenox Disposition: continue inpatient care, difficult to place in rehab because she has no insurance. Family in [place], she lives alone and has 18 steps to her upstairs bedroom. We talked as length about having one of her 5 sons or other family members to come and care for her. She will need to file for disability. She will need to move the upstairs bedroom for down stairs. She will need [facility] PT/OT. She most likely will need a wheelchair. History Interval history: Patient was seen and examined. Follow-up on current diagnosis of CVA. No overnight events reported to me. Patient denies any chest pain, shortness breath, nausea/vomiting or severe headaches. Imaging, nursing note, chart, labs and old chart reviewed. Discussed with patient. This morning she is having worse wade right sided weakness, now completely paralyzed upper extermity, low right extremity does twitch but no longer able to lift leg. Stat CT head done and does not show hemorrhage conversion or extension of new stroke Hospitalist Physical - Physical exam Narrative exam: Gen: WDWN, NAD, Awake, Alert, Orientated HEENT: NCAT, EOMI, PERRL, OP Clear Neck: supple, no adenopathy, no thyromegaly, no JVD CVS/Heart: RRR, normal S1S2, pulses present bilaterally Chest/Lungs: CTA B, Symmetrical chest expansion, good air entry bilaterally GI/Abdomen: soft, NTND, good bowel sounds, no guarding or rebound /Bladder: no suprapubic tenderness, no CVA or paraspinal tenderness Extermity/Skin: no c/c/e, no obvious rash MSK: FROM x 3 Neuro: CN 2-12 grossly intact except tongue protrudes left, right side sensory deficit, +right arm drift, right hemiparesis, expressive dysarthria Psych: calm - Constitutional Vitals: Temp Pulse Resp BP Pulse Ox 97.6 F 71 16 177/88 95 09/30/18 12:02 09/30/18 12:02 09/30/18 12:02 09/30/18 12:02 09/30/18 12:02 Results - Labs CBC & Chem 7: 09/27/18 19:13 09/28/18 04:21 Labs: Laboratory Last Values WBC 6.1 K/mm3 (4.5-11.0) 09/27/18 19:13 RBC 4.97 M/mm3 (3.65-5.03) 09/27/18 19:13 Hgb 15.1 gm/dl (10.1-14.3) H 09/27/18 19:13 Hct 43.9 % (30.3-42.9) H 09/27/18 19:13 MCV 88 fl (79-97) 09/27/18 19:13 MCH 30 pg (28-32) 09/27/18 19:13 MCHC 34 % (30-34) 09/27/18 19:13 RDW 12.7 % (13.2-15.2) L 09/27/18 19:13 Plt Count 204 K/mm3 (140-440) 09/27/18 19:13 Lymph % (Auto) 29.5 % (13.4-35.0) 09/27/18 19:13 [place] % (Auto) 10.2 % (0.0-7.3) H 09/27/18 19:13 Eos % (Auto) 4.5 % (0.0-4.3) H 09/27/18 19:13 Baso % (Auto) 1.0 % (0.0-1.8) 09/27/18 19:13 Lymph # 1.8 K/mm3 (1.2-5.4) 09/27/18 19:13 [place] # 0.6 K/mm3 (0.0-0.8) 09/27/18 19:13 Eos # 0.3 K/mm3 (0.0-0.4) 09/27/18 19:13 Baso # 0.1 K/mm3 (0.0-0.1) 09/27/18 19:13 Seg Neutrophils % 54.8 % (40.0-70.0) 09/27/18 19:13 Seg Neutrophils # 3.3 K/mm3 (1.8-7.7) 09/27/18 19:13 PT 11.9 Sec. (12.2-14.9) L 09/27/18 19:13 INR 0.90 (0.87-1.13) 09/27/18 19:13 APTT 23.4 Sec. (24.2-36.6) L 09/27/18 19:13 16.7 Sec. (15.1-19.6) 09/27/18 19:13 Sodium 143 mmol/L (137-145) 09/28/18 04:21 Potassium 3.1 mmol/L (3.6-5.0) L 09/28/18 04:21 Chloride 103.1 mmol/L (98-107) 09/28/18 04:21 Carbon Dioxide 26 mmol/L (22-30) 09/28/18 04:21 17 mmol/L 09/28/18 04:21 BUN 8 mg/dL (7-17) 09/28/18 04:21 0.5 mg/dL (0.7-1.2) L 09/28/18 04:21 Estimated GFR > 60 ml/min 09/28/18 04:21 16 % 09/28/18 04:21 Glucose 85 mg/dL (65-100) 09/28/18 04:21 POC Glucose 112 (70-105) H 09/27/18 19:16 4.9 % (4-6) 09/28/18 04:21 Calcium 9.1 mg/dL (8.4-10.2) 09/28/18 04:21 118 units/L (30-135) 09/27/18 19:13 CK-MB (CK-2) 1.9 ng/mL (0.0-4.0) 09/27/18 19:13 CK-MB (CK-2) Rel Index 1.6 (0-4) 09/27/18 19:13 < 0.010 ng/mL (0.00-0.029) 09/27/18 19:13 Triglycerides 168 mg/dL (2-149) H 09/28/18 04:21 Cholesterol 165 mg/dL (50-199) 09/28/18 04:21 104 mg/dL (50-130) 09/28/18 04:21 52 mg/dL (40-59) 09/28/18 04:21 3.17 % 09/28/18 04:21 Yellow (Yellow) 09/28/18 04:15 Slightly-cloudy (Clear) 09/28/18 04:15 5.0 (5.0-7.0) 09/28/18 04:15 Ur Specific [place] 1.011 (1.003-1.030) 09/28/18 04:15 <15 mg/dl mg/dL (Negative) 09/28/18 04:15 Neg mg/dL (Negative) 09/28/18 04:15 Neg mg/dL (Negative) 09/28/18 04:15 Neg (Negative) 09/28/18 04:15 Neg (Negative) 09/28/18 04:15 Neg (Negative) 09/28/18 04:15 < 2.0 mg/dL (<2.0) 09/28/18 04:15 Ur Leukocyte Esterase Neg (Negative) 09/28/18 04:15 2.0 /HPF (0.0-6.0) 09/28/18 04:15 2.0 /HPF (0.0-6.0) 09/28/18 04:15 U Epithel Cells (Auto) 7.0 /HPF (0-13.0) 09/28/18 04:15 1+ /HPF (Negative) 09/28/18 04:15 Few /HPF 09/28/18 04:15 Active Medications - Current Medications Current Medications: Generic Name Dose Route Start Last Admin Trade Name Freq PRN Reason Stop Dose Admin Acetaminophen 650 mg 09/27/18 23:18 Tylenol PO Q4H PRN Pain MILD(1-3)/Fever >100.5/MCCOY Aspirin 325 mg 09/28/18 10:00 09/30/18 10:16 Aspirin PO 325 mg QDAY RAINE Administration Atorvastatin Calcium 40 mg 09/28/18 22:00 09/29/18 22:13 Lipitor PO 40 mg QHS RAINE Administration Docusate Sodium 100 mg 09/28/18 10:00 09/30/18 10:17 Colace PO 100 mg BID RAINE Administration Enoxaparin Sodium 40 mg 09/28/18 10:00 09/30/18 10:16 Lovenox SUB-Q 40 mg QDAY RAINE Administration Folic Acid 1 mg 09/28/18 10:00 09/30/18 10:17 Folvite PO 1 mg QDAY RAINE Administration Hydralazine HCl 10 mg 09/28/18 03:04 09/29/18 22:13 Apresoline IV 10 mg Q4H PRN Administration BP >200/120 Lorazepam 2 mg 09/28/18 02:00 Ativan IV Q1H PRN CIWA-Ar 8-15 Lorazepam 4 mg 09/28/18 02:00 Ativan IV Q1H PRN CIWA-Ar 16-25 Morphine Sulfate 2 mg 09/27/18 23:34 Morphine IV Q4H PRN Pain, Moderate (4-6) Nicotine 14 mg 09/28/18 03:00 09/30/18 10:17 Habitrol TD 14 mg QDAY RAINE Administration Ondansetron HCl 4 mg 09/27/18 23:42 Zofran IV Q6H PRN Nausea And Vomiting Promethazine HCl 25 mg 09/27/18 23:34 Phenergan [place] Q6H PRN Nausea And Vomiting Sodium Chloride 10 ml 09/28/18 10:00 09/30/18 10:17 Sodium Chloride Flush Syringe 10 Ml IV 10 ml BID RAINE Administration Sodium Chloride 10 ml 09/27/18 23:18 Sodium Chloride Flush Syringe 10 Ml IV PRN PRN LINE FLUSH Thiamine HCl 100 mg 09/28/18 10:00 09/30/18 10:16 Vitamin B-1 PO 100 mg QDAY RAINE Administration
--- NOTE | 2018-09-30 16:48 | Discharge Summary ---
Providers - Providers Date of Admission: 09/27/18 23:18 Date of discharge: 09/30/18 Attending physician: JEY SAMPSON 09/27/18 Consult to Physician [CONS] Routine Comment: Consulting Provider: JOSSELINE SPANN Physician Instructions: Reason For Exam: cva 09/27/18 23:35 Occupational Therapy Evaluate and Treat [CONS] Routine Comment: Reason For Exam: Neuro deficits Physical Therapy Evaluation and Treat [CONS] Routine Comment: Reason For Exam: Neuro deficits 09/28/18 02:54 Speech Therapy Evaluation and Treat [CONS] Routine Reason For Exam: cva 09/28/18 17:19 Consult to Case Management [CONS] Routine Services Needed at Discharge: Other Notified:: case management Additional Physician Instructions: placement Occupational Therapy Evaluate and Treat [CONS] Routine Comment: Reason For Exam: Neuro deficits Physical Therapy Evaluation and Treat [CONS] Routine Comment: Reason For Exam: Neuro deficits [facility] Condition: Stable Hospital course: Patient is a 52 yo woman with a history tobacco dependency, hypertension with non-adherence to medication x 1 month and alcohol abuse who presented to [facility] ED with right sided weakness. She was found to have acute stroke but outside the therapeutic window for tPA. On 09/29/18, patient having worsening right sided weakness, now completely paralyzed upper extremity but lower right extremity does twitch but she is no longer able to lift buffy right leg. Stat CT head done and does not show hemorrhage conversion or worsening of stroke. * MRI brain without contrast Impression IMPRESSION: 1. Ischemic changes in the left gangliocapsular region as described above. No signs of hemorrhagic transformation. 2. Otherwise, no focal mass, hemorrhage, hydrocephalus, or large infarct seen. * MRA head without contrast INTERNAL CAROTID ARTERIES: Areas of mild narrowing are seen in the communicating portions of both internal carotid arteries. These findings are not felt to be hemodynamically significant. VERTEBROBASILAR SYSTEM: No significant narrowing appreciated. DISTAL BRANCHES: Distal branches of the anterior, middle, and posterior cerebral arteries are fairly symmetric in appearance and number. Short segment area of moderate to high- grade narrowing suggested in proximal MCA trifurcation branches on the right. Focal areas of mild narrowing may be present in proximal MCA trifurcation branches on the left. Focal areas of short segment narrowing suggested in the P1 - 2 junctional regions of both posterior cerebral arteries. ANEURYSM: None identified. There are small infundibula associated with small posterior communicating arteries bilaterally. IMPRESSION: Multiple areas of short segment narrowing, as described above. * Carotid Doppler U/S bilateral: No significant stenosis * Echocardiogram did not show any significant abnormality except for mild mitral regurgitation and some thickening of mitral valves. Acute ischemic stroke involving left basal ganglia involving the cardiac nucleus and putamen causing right hemiparesis: treat with Aspirin and statin, PT/OT Hypertension: Allow for permissive HTN, -Hold all home antihypertensive meds for now, -IV hydralazine when necessary, certified genetic counselor on compliance Tobacco Abuse: Current every day smoker, Counseled for cessation, Nicotine patch when necessary Intracranial stenosis: Outpatient NSY evaluation, none here and not emergent to transfer EToH Abuse: Counseled for cessation DVT PPX: On lovenox Disposition: home with home [facility], difficult to place in rehab because she has no insurance. Family in [place], she lives alone and has 18 steps to her upstairs bedroom. We talked as length about having one of her 5 sons or other family members to come and care for her. She will need to file for disability. She will need to move the upstairs bedroom for down stairs. She will need [facility] home PT/OT. She most likely will need a wheelchair. Her friend will come and help her until her family can come get her. Disposition: DC/TX- HOME UNDER HOME [facility] Time spent for discharge: 35 minutes Core Measure Documentation - Palliative Care Palliative Care/ Comfort Measures: Not Applicable - Core Measures Any of the following diagnoses?: stroke - VTE Discharge Requirements Deep Vein Thrombosis/Pulmonary Embolism Present on Admission: No Has pt received <5 days of overlap therapy or INR<2.0: No Anticoagulant overlap therapy prescribed at discharge: No Contraindication No Overlap Therapy order at DC: Not Indicated - Stroke Discharge Requirements Statin for LDL = or >70 mg/dl on DC: Yes Anticoag for atrial fib/atrial flutter: Not Applicable Reason for no anticoag for AF/F on DC: Not Indicated Antithrombotic for ischemic stroke: Yes Exam - Physical Exam Narrative exam: Gen: WDWN, NAD, Awake, Alert, Orientated HEENT: NCAT, EOMI, PERRL, OP Clear Neck: supple, no adenopathy, no thyromegaly, no JVD CVS/Heart: RRR, normal S1S2, pulses present bilaterally Chest/Lungs: CTA B, Symmetrical chest expansion, good air entry bilaterally GI/Abdomen: soft, NTND, good bowel sounds, no guarding or rebound /Bladder: no suprapubic tenderness, no CVA or paraspinal tenderness Extermity/Skin: no c/c/e, no obvious rash MSK: FROM x 3 Neuro: CN 2-12 grossly intact except tongue protrudes left, right side sensory deficit, +right arm drift, right hemiparesis, expressive dysarthria Psych: calm - Constitutional Vitals: Temp Pulse Resp BP Pulse Ox 97.6 F 71 16 177/88 95 09/30/18 12:02 09/30/18 12:02 09/30/18 12:02 09/30/18 12:02 09/30/18 12:02 Plan Activity: fall precautions, other (no strenous activity) Diet: low salt Special Instructions: physical therapy, occupational therapy Durable Medical Equipment Needed Upon Discharge: Wheelchair [facility] [Primary Care Provider[facility] - 3-5 Days RADHA QUEEN MD [Staff Physician] - 7 Days MICHELLE JOHNSON MD [Staff Physician] - 7 Days Prescriptions: AtorvaSTATin [Lipitor] 40 mg PO QHS #30 tablet Aspirin 325 mg PO QDAY #30 tablet Nicotine [Habitrol] 14 mg TD QDAY #14 patch amLODIPine [Norvasc] 10 mg PO DAILY #30 tab Thiamine [Vitamin B-1] 100 mg PO QDAY #30 tablet
== END 2018-09-30 18:50 | disposition home health service (06) | DRG 65 ==
LOC: ED 18:43 → 4A 23:18
PROVIDERS: ADMIT Internal Medicine; ATTEND Internal Medicine
DX: I63.9 Cerebral infarction, unspecified (principal); I16.1 Hypertensive emergency; G81.91 Hemiplegia, unspecified affecting right dominant side; F17.200 Nicotine dependence, unspecified, uncomplicated; D75.1 Secondary polycythemia; F10.10 Alcohol abuse, uncomplicated; Y90.9 Presence of alcohol in blood, level not specified; Z71.6 Tobacco abuse counseling; I10 Essential (primary) hypertension; I66.9 Occlusion and stenosis of unspecified cerebral artery
CPT/HCPCS: 36415; 70450; 70460; 70544; 70551; 71045; 80048; 80061; 81001; 82550; 82553; 82962; 83036; 84484; 85025; 85610; 85670; 85730; 93005; 93010; 93306; 93880; 95819; 99406; G0378; A9270-GY; J0360; J1650